=== PATIENT | male | born 1985 | race Caucasian/White ===

== ENCOUNTER 2017-04-13 12:41 | Inpatient (IN) | payer OTHER, BC ==
[2017-04-13] MEDS ORDERED: Aspirin 81 MG Tab.Chew PO ONE (13:00)
[2017-04-13] MEDS ORDERED: Magnesium Sulfate/Water 2 GM in Premix Bag 1 BAG IV ONE (13:02)
[2017-04-13] MEDS ORDERED: Diltiazem 25 MG/5 ML SDV IVPUSH ONE ×3 (13:02→13:39)
[2017-04-13] MEDS ORDERED: Sodium Chloride 0.9% 1,000 ML IV ONE (13:05)
[2017-04-13] MEDS ORDERED: Sodium Chloride 0.9% 1,000 ML IV SCH (13:15)
--- NOTE | 2017-04-13 13:31 | EDM.PDOC ---
ED HPI GENERAL MEDICAL PROBLEM - General Chief Complaint: Cardiovascular Problem Stated Complaint: RAPID HEART RATE AND HIGH BLOOD PRESSURE Time Seen by Provider: 04/13/17 12:55 Source of Information: Reports: Patient History Limitations: Reports: No Limitations - History of Present Illness INITIAL COMMENTS - FREE TEXT/NARRATIVE: Patient is a 32-year-old male who presents to the ED complaining of fast heart rate, palpitations, shortness of breath with exertion, and diaphoresis. Patient states he awoke this morning at approximately 7:00 this morning with palpitations and fluttering sensation to his chest. Patient took his blood pressure and found out his heart rate was in the 140s. Patient took all his home medications as listed below. Throughout the course of the morning he noted his heart rate increasing. He has only shortness of breath with exertion. no chest pain, no dizziness, no nausea or vomiting, no presyncopal/syncopal episode no history of similar symptoms in the past. He has a history of hypertension that was diagnosed one year ago and has since then been taking lisinopril and hydrochlorothiazide. In addition he has a has history of hyperlipidemia and takes simvastatin and facial. There is a history of first- degree relatives with heart disease dad. There is no history DVT/PE. Patient smokes approx. 2 cigarettes with alcohol consumption. Patient did drink approximately 10-12 beers yesterday while watching a football game. Caffeine Intake 2-3 sodas per day. Denies any recreational drug use. - Related Data Allergies Allergy/AdvReac Type Severity Reaction Status Date / Time No Known Allergies Allergy Verified 03/18/16 15:23 CDT Home Meds: Home Meds Fish Oil/[place]-3 Fatty Acids [Fish Oil] 1 each PO DAILY 04/13/17 [History] Hydrochlorothiazide 12.5 mg PO DAILY 04/13/17 [History] Lisinopril 10 mg PO DAILY 04/13/17 [History] Simvastatin [Zocor] 40 mg PO BEDTIME 04/13/17 [History] Past Medical History HEENT History: Reports: None Cardiovascular History: Reports: Afib, Hypertension Respiratory History: Reports: Other (See Below) Other Respiratory History: pleurisy, pneumonia and mono together as a child Gastrointestinal History: Reports: None Genitourinary History: Reports: None Musculoskeletal History: Reports: None Neurological History: Reports: None Psychiatric History: Reports: None Endocrine/Metabolic History: Reports: None Hematologic History: Reports: None Immunologic History: Reports: None Oncologic (Cancer) History: Reports: None Dermatologic History: Reports: None - Infectious Disease History Infectious Disease History: Reports: None - Past Surgical History Head Surgeries/Procedures: Reports: None Male Surgical History: Reports: None Social & Family History - Family History Cardiac: Reports: Bypass, Hypertension - Tobacco Use Smoking Status *Q: Never Smoker Years of Tobacco use: 10 Packs/Tins Daily: 0.1 Second Hand Smoke Exposure: No - Alcohol Use Days Per Week of Alcohol Use: 3 Number of Drinks Per Day: 4 Total Drinks Per Week: 12 - Recreational Drug Use Recreational Drug Use: No ED ROS GENERAL - Review of Systems Review Of Systems: See Below Constitutional: Denies: Fever, Chills, Decreased Appetite HEENT: Reports: No Symptoms Respiratory: Reports: Shortness of Breath. Denies: Cough, Sputum Cardiovascular: Reports: Dyspnea on Exertion, Palpitations. Denies: Chest Pain , Edema, Lightheadedness, Syncope GI/Abdominal: Denies: Abdominal Pain, Nausea, Vomiting : Reports: No Symptoms Musculoskeletal: Denies: Neck Pain, Shoulder Pain, Arm Pain, Back Pain Skin: Reports: No Symptoms Neurological: Denies: Dizziness, Headache, Numbness, Tingling, Difficulty Walking ED EXAM, GENERAL - Physical Exam Exam: See Below Exam Limited By: No Limitations General Appearance: Alert, WD/WN, No Apparent Distress Eye Exam: Bilateral Eye: PERRL Ears: Hearing Grossly Normal Nose: Normal Inspection Throat/Mouth: Normal Voice, No Airway Compromise Neck: Normal Inspection, Supple Respiratory/Chest: No Respiratory Distress, Lungs Clear, Normal Breath Sounds, No Accessory Muscle Use, Chest Non-Tender Cardiovascular: Normal Peripheral Pulses, Tachycardia, Systolic Murmur, Irregularly Irregular Peripheral Pulses: 2+: Radial (L), Radial (R) GI/Abdominal: Normal Bowel Sounds, Soft, Non-Tender, No Organomegaly, No Distention Extremities: Normal Inspection, Normal Range of Motion, Non-Tender, No Pedal Edema, Normal Capillary Refill Neurological: Alert, Oriented, CN II-XII Intact, Normal Cognition, No Motor/ Sensory Deficits Psychiatric: Normal Affect, Normal Mood Skin Exam: Warm, Dry, Intact, Normal Color Course - Vital Signs Last Recorded V/S: Last Vital Signs Temp 98.6 F 04/13/17 20:00 Pulse 104 H 04/13/17 21:00 Resp 26 H 04/13/17 20:00 BP 138/91 H 04/13/17 22:00 Pulse Ox 96 04/13/17 20:00 - Orders/Labs/Meds Orders: Active Orders 24 hr Category Date Time Status Chest 1V Frontal [CR] Stat Exams 04/13/17 12:59 Taken Diltiazem 125 mg Med 04/13/17 13:45 Active Sodium Chloride 0.9% [Normal Saline] 100 ml IV TITRATE EKG 12 Lead [EK] Stat Ther 04/13/17 12:56 Ordered Medication Orders Acetaminophen (Tylenol) 650 mg PO Q4H PRN PRN Reason: Pain (Mild 1-3)/fever Hydrocodone Bitart/Acetaminophen ([place] 325-5 Mg) 1 tab PO Q4H PRN PRN Reason: Pain (moderate 4-6) Albuterol/Ipratropium (Duoneb 3.0-0.5 Mg/3 Ml) 3 ml NEB Q4H PRN PRN Reason: Shortness Of Breath/wheezing Apixaban (Eliquis) 5 mg PO BID [facility] Last Admin: 04/13/17 21:18 Dose: 5 mg Admin: 04/13/17 21:13 Dose: Not Given Bisacodyl (Dulcolax) 5 mg PO DAILY PRN PRN Reason: Constipation Digoxin (Lanoxin) 250 mcg IVPUSH Q6H [facility] Stop: 04/14/17 07:01 Last Admin: 04/13/17 19:55 Dose: 250 mcg Docusate Sodium (Colace) 100 mg PO BID PRN PRN Reason: Constipation Hydralazine HCl (Apresoline) 20 mg IVPUSH Q4H PRN PRN Reason: Hypertension Hydrochlorothiazide (Hydrochlorothiazide) 12.5 mg PO DAILY [facility] Hydromorphone HCl (Dilaudid) 0.25 mg IVPUSH Q2H PRN PRN Reason: Pain (severe 7-10) Diltiazem HCl 125 mg/ Sodium (Chloride) 125 mls @ 5 mls/hr IV TITRATE [facility]; 5 MG /HR PRN Reason: Protocol Last Titration: 04/13/17 19:00 Dose: 15 mg/hr, 15 mls/hr Titration: 04/13/17 14:55 Dose: 10 mg/hr, 10 mls/hr Admin: 04/13/17 14:23 Dose: 5 mg/hr, 5 mls/hr Promethazine HCl 12.5 mg/ (Sodium Chloride) 50.5 mls @ 100 mls/hr IV Q6H PRN PRN Reason: Nausea/Vomiting Lisinopril (Prinivil) 10 mg PO DAILY [facility] Lorazepam (Ativan) 1 mg IV Q6H PRN PRN Reason: Anxiety Last Admin: 04/13/17 21:21 Dose: 1 mg Lorazepam (Ativan) 2 mg IVPUSH Q4H PRN PRN Reason: Seizures Magnesium Sulfate (Pharmacy To Dose - Magnesium Replacement) 1 dose .XX ASDIRECTED [facility] Metoprolol Tartrate (Lopressor) 5 mg IVPUSH Q4H PRN PRN Reason: Tachycardia Last Admin: 04/13/17 16:56 Dose: 5 mg Ondansetron HCl (Zofran) 4 mg IV Q6H PRN PRN Reason: Nausea/Vomiting Polyethylene Glycol (Miralax) 17 gm PO DAILY PRN PRN Reason: Constipation Potassium Chloride (Pharmacy To Dose - Potassium Replacement) 1 dose .XX ASDIRECTED [facility] Senna/Docusate Sodium (Senna Plus) 1 tab PO BID PRN PRN Reason: Constipation Simvastatin (Zocor) 40 mg PO BEDTIME [facility] Temazepam (Restoril) 15 mg PO BEDTIME PRN PRN Reason: Sleep Last Admin: 04/13/17 21:20 Dose: 15 mg Labs: Laboratory Tests 04/13/17 04/13/17 04/13/17 Range/Units 12:55 12:55 12:55 WBC 9.30 H (4.23-9.07) K/mm3 RBC 5.61 (4.63-6.08) M/mm3 Hgb 17.4 (13.7-17.5) gm/L Hct 50.3 (40.1-51.0) % MCV 89.7 (79.0-92.2) fl MCH 31.0 (25.7-32.2) pg MCHC 34.6 (32.2-35.5) g/dl RDW Std Deviation 41.6 (35.1-43.9) fL Plt Count 264 (163-337) K/mm3 MPV 10.9 (9.4-12.3) fl Neut % (Auto) 59.9 (34.0-67.9) % Lymph % (Auto) 30.3 (21.8-53.1) % [place] % (Auto) 6.8 (5.3-12.2) % Eos % (Auto) 1.8 (0.8-7.0) Baso % (Auto) 0.8 (0.1-1.2) % Neut # (Auto) 5.57 H (1.78-5.38) K/mm3 Lymph # (Auto) 2.82 (1.32-3.57) K/mm3 [place] # (Auto) 0.63 (0.30-0.82) K/mm3 Eos # (Auto) 0.17 (0.04-0.54) K/mm3 Baso # (Auto) 0.07 (0.01-0.08) K/mm3 Sodium 143 (136-145) mEq/L Potassium 4.1 (3.5-5.1) mEq/L Chloride 104 (98-107) mEq/L Carbon Dioxide 27 (21-32) mEq/L Anion Gap 16.1 H (5-15) BUN 15 (7-18) mg/dL Creatinine 1.2 (0.7-1.3) mg/dL Est Cr Clr Drug Dosing 98.03 mL/min Estimated GFR (MDRD) > 60 (>60) mL/min BUN/Creatinine Ratio 12.5 L (14-18) Glucose 121 H (74-106) mg/dL Calcium 9.0 (8.5-10.1) mg/dL Magnesium 1.7 L (1.8-2.4) mg/dl Total Bilirubin 0.4 (0.2-1.0) mg/dL AST 57 H (15-37) U/L ALT 67 H (16-63) U/L Alkaline Phosphatase 66 (46-116) U/L Troponin I < 0.017 (0.00-0.056) ng/mL Total Protein 7.6 (6.4-8.2) g/dl Albumin 3.7 (3.4-5.0) g/dl Globulin 3.9 gm/dL Albumin/Globulin Ratio 1.0 (1-2) TSH 3rd Generation 1.465 (0.358-3.74) uIU/mL Meds: Medications Generic Name Dose Route Start Last Admin Trade Name Freq PRN Reason Stop Dose Admin Acetaminophen 650 mg 04/13/17 16:17 Tylenol PO Q4H PRN Pain (Mild 1-3)/fever Hydrocodone Bitart/Acetaminophen 1 tab 04/13/17 16:17 [place] 325-5 Mg PO Q4H PRN Pain (moderate 4-6) Albuterol/Ipratropium 3 ml 04/13/17 16:17 Duoneb 3.0-0.5 Mg/3 Ml NEB Q4H PRN Shortness Of Breath/wheezing Apixaban 5 mg 04/13/17 20:53 04/13/17 21:18 Eliquis PO 5 mg BID [facility]STER Administration Bisacodyl 5 mg 04/13/17 16:17 Dulcolax PO DAILY PRN Constipation Digoxin 250 mcg 04/13/17 19:00 04/13/17 19:55 Lanoxin IVPUSH 04/14/17 07:01 250 mcg Q6H [facility] Administration Docusate Sodium 100 mg 04/13/17 16:17 Colace PO BID PRN Constipation Hydralazine HCl 20 mg 04/13/17 16:29 Apresoline IVPUSH Q4H PRN Hypertension Hydrochlorothiazide 12.5 mg 04/14/17 09:00 Hydrochlorothiazide PO DAILY [facility] Hydromorphone HCl 0.25 mg 04/13/17 16:17 Dilaudid IVPUSH Q2H PRN Pain (severe 7-10) Diltiazem HCl 125 mg/ Sodium 125 mls @ 5 mls/hr 04/13/17 13:45 04/13/17 19:00 Chloride IV 15 mg/hr TITRATE [facility] 15 mls/hr Protocol Titration 5 MG/HR Promethazine HCl 12.5 mg/ 50.5 mls @ 100 mls/hr 04/13/17 16:17 Sodium Chloride IV Q6H PRN Nausea/Vomiting Lisinopril 10 mg 04/14/17 09:00 Prinivil PO DAILY [facility] Lorazepam 1 mg 04/13/17 16:17 04/13/17 21:21 Ativan IV 1 mg Q6H PRN Administration Anxiety Lorazepam 2 mg 04/13/17 16:29 Ativan IVPUSH Q4H PRN Seizures Magnesium Sulfate 1 dose 04/13/17 16:30 Pharmacy To Dose - Magnesium Replacement .XX ASDIRECTED [facility] Metoprolol Tartrate 5 mg 04/13/17 16:29 04/13/17 16:56 Lopressor IVPUSH 5 mg Q4H PRN Administration Tachycardia Ondansetron HCl 4 mg 04/13/17 16:17 Zofran IV Q6H PRN Nausea/Vomiting Polyethylene Glycol 17 gm 04/13/17 16:17 Miralax PO DAILY PRN Constipation Potassium Chloride 1 dose 04/13/17 16:30 Pharmacy To Dose - Potassium Replacement .XX ASDIRECTED [facility] Senna/Docusate Sodium 1 tab 04/13/17 16:17 Senna Plus PO BID PRN Constipation Simvastatin 40 mg 04/13/17 21:00 Zocor PO BEDTIME [facility] Temazepam 15 mg 04/13/17 16:17 04/13/17 21:20 Restoril PO 15 mg BEDTIME PRN Administration Sleep Discontinued Medications Generic Name Dose Route Start Last Admin Trade Name Freq PRN Reason Stop Dose Admin Aspirin 324 mg 04/13/17 13:00 04/13/17 13:14 Aspirin PO 04/13/17 13:01 324 mg ONETIME ONE Administration Diltiazem HCl 10 mg 04/13/17 13:02 04/13/17 17:29 Diltiazem IVPUSH 04/13/17 13:03 Not Given ONETIME ONE Diltiazem HCl 20 mg 04/13/17 13:03 04/13/17 13:11 Diltiazem IVPUSH 04/13/17 13:04 20 mg ONETIME ONE Administration Diltiazem HCl 20 mg 04/13/17 13:39 04/13/17 13:50 Diltiazem IVPUSH 04/13/17 13:40 20 mg ONETIME ONE Administration Magnesium Sulfate 2 gm/ Premix 50 mls @ 25 mls/hr 04/13/17 13:02 04/13/17 13: 15 IV 04/13/17 15:01 25 mls/hr ONETIME ONE Administration Sodium Chloride 1,000 mls @ 250 mls/hr 04/13/17 13:15 04/13/17 14:23 Normal Saline IV 250 mls/hr ASDIRECTED [facility] Administration Sodium Chloride 1,000 mls @ 999 mls/hr 04/13/17 13:05 04/13/17 13:10 Normal Saline IV 04/13/17 14:05 999 mls/hr ONETIME ONE Administration - Re-Assessments/Exams Free Text/Narrative Re-Assessment/Exam: Patient is a 32-year-old male presents ED with sudden onset of atrial fibrillation with RVR. He has some mild shortness of breath with exertion. He has no chest pain, presyncope/syncopal episodes, nausea vomiting, or other concerning symptoms. Blood pressure is stable. Onset was approximately 6:00 this morning. EKG revealed atrial fibrillation at a rate of [address] elevation present. Patient has no chest pain. Peripheral IV established with normal saline 999 mls per hour bolus and then 250 mls/hr thereafter, MG 2 grams IVP, ASA 324mg PO, and Diltiazem 20mg IVP. Initial labs and studies include: CBC, chem 14, troponin, and chest x-ray one view. 1342 Heart rate remains in the 120s to 140s atrial fibrillation. Blood pressure stable. Will go ahead with another 20 mg IVP of diltiazem and start the Cardizem drip. TSH and magnesium level VII ordered. Labs reviewed:CBC was essentially normal. Sodium 143, potassium 4.1, AG 16.1, creatinine 1.2, glucose 121, AST 57, ALT 67, troponin less than 0.017. Patient is on simvastatin and thus likely result of elevated LFTs. He does not drink alcohol on everyday basis. 04/13/17 14:25 Cardizem gtt just started. Patient remains in A-Fib 120's. Blood pressure stable. Patient has no symptoms. If it does not convert in the next 1 hr will admit. Urine drug tox ordered along with UA. 04/13/17 15:[address] Franz. He has accepted the patient. Patient will require ICU admission. MCG has been completed. Admission orders will be placed when patient is moved to the floor. Departure - Departure Time of Disposition: 15:59 Disposition: Admitted As Inpatient 64 Condition: Fair Clinical Impression: Atrial fibrillation, new onset, Atrial fibrillation with RVR, Hypomagnesemia - My Orders Last 24 Hours: My Active Orders 04/13/17 12:56 EKG 12 Lead [EK] Stat 04/13/17 12:59 Chest 1V Frontal [CR] Stat 04/13/17 13:45 Diltiazem 125 mg Sodium Chloride 0.9% [Normal Saline] 100 ml IV TITRATE - Assessment/Plan Last 24 Hours: My Active Orders 04/13/17 12:56 EKG 12 Lead [EK] Stat 04/13/17 12:59 Chest 1V Frontal [CR] Stat 04/13/17 13:45 Diltiazem 125 mg Sodium Chloride 0.9% [Normal Saline] 100 ml IV TITRATE
[2017-04-13] MEDS: Diltiazem 125 MG in Sodium Chloride 0.9% 100 ML IV SCH ×2 (14:23→23:00)
[2017-04-13] MEDS ORDERED: Docusate Sodium 100 MG Cap PO PRN (16:17)
[2017-04-13] MEDS ORDERED: Temazepam 15 MG Cap PO PRN (16:17)
[2017-04-13] MEDS ORDERED: Acetaminophen 325 MG Tab PO PRN (16:17)
[2017-04-13] MEDS ORDERED: Bisacodyl 5 MG Tab PO PRN (16:17)
[2017-04-13] MEDS ORDERED: Ondansetron 4 MG/2 ML SDV IV PRN (16:17)
[2017-04-13] MEDS ORDERED: Albuterol/Ipratropium 3.0-0.5 MG/3 ML Neb Soln NEB PRN (16:17)
[2017-04-13] MEDS ORDERED: Promethazine 12.5 MG in Sodium Chloride 0.9% 50 ML IV PRN (16:17)
[2017-04-13] MEDS ORDERED: HYDROmorphone 1 MG/ML Syringe IVPUSH PRN (16:17)
[2017-04-13] MEDS ORDERED: Acetaminophen/HYDROcodone 325-5 MG Tab PO PRN (16:17)
[2017-04-13] MEDS ORDERED: Polyethylene Glycol 3350 Powder 17 GM Packet PO PRN (16:17)
--- NOTE | 2017-04-13 16:17 | PCM.HP ---
H&P History of Present Illness - General Date of Service: 04/13/17 Admit Problem/Dx: Admission Diagnosis/Problem Admission Diagnosis/Problem Atrial fibrillation Source of Information: Patient, Old Records, Provider, RN Notes Reviewed History Limitations: Reports: No Limitations - History of Present Illness Initial Comments - Free Text/Narative: This is a 32-year-old young white male with past medical history of hypertension , hyperlipidemia, and obesity with a BMI of +30 who presents to the emergency department with complaints of heart palpitations associated with shortness of breath and diaphoresis. His symptoms started this morning at about 7:00 that woke him up in bed. He took his blood pressure and found that his heart rate was in the 140s. He took his home medications as usual. However he noted that throughout the course of the morning, his heart rate seems to be increasing in rate. Patient denies any previous history of it in the past. Nothing makes his symptoms better or worse. He denies any thyroid issues. No history of irregular heart rate. He denies illicit drug use. However he admits to occasional alcohol use approximately 10-12 beers mostly on the weekends. He also consumes heavy amount of sodas per day according to his . His initial workup in the emergency department shows a fairly unremarkable CBC with a WBC of 9.30. His chemistry is remarkable for anion gap of 16.1, glucose of 121, magnesium of 1.7, AST of 57, ALT of 67. TSh and troponin are both negative. UA/UDS are both negative. His EKG shows irregular heart rate. His chest x-ray shows no acute abnormal findings. Patient received initial treatment in the emergency department before he was sent to the unit for further management. He was admitted for new onset of atrial fibrillation with RVR. - Related Data Allergies/Adverse Reactions: Allergies Allergy/AdvReac Type Severity Reaction Status Date / Time No Known Allergies Allergy Verified 03/18/16 15:23 CDT Home Medications: Home Meds Fish Oil/[place]-3 Fatty Acids [Fish Oil] 1 each PO DAILY 04/13/17 [History] Hydrochlorothiazide 12.5 mg PO DAILY 04/13/17 [History] Lisinopril 10 mg PO DAILY 04/13/17 [History] Simvastatin [Zocor] 40 mg PO BEDTIME 04/13/17 [History] Past Medical History HEENT History: Reports: None Cardiovascular History: Reports: Afib, Hypertension Respiratory History: Reports: Other (See Below) Other Respiratory History: pleurisy, pneumonia and mono together as a child Gastrointestinal History: Reports: None Genitourinary History: Reports: None Musculoskeletal History: Reports: None Neurological History: Reports: None Psychiatric History: Reports: None Endocrine/Metabolic History: Reports: None Hematologic History: Reports: None Immunologic History: Reports: None Oncologic (Cancer) History: Reports: None Dermatologic History: Reports: None - Infectious Disease History Infectious Disease History: Reports: None - Past Surgical History Head Surgeries/Procedures: Reports: None Male Surgical History: Reports: None Social & Family History - Family History Cardiac: Reports: Bypass, Hypertension - Tobacco Use Smoking Status *Q: Never Smoker Years of Tobacco use: 10 Packs/Tins Daily: 0.1 Second Hand Smoke Exposure: No - Alcohol Use Days Per Week of Alcohol Use: 3 Number of Drinks Per Day: 4 Total Drinks Per Week: 12 - Recreational Drug Use Recreational Drug Use: No H&P Review of Systems - Review of Systems: Review Of Systems: See Below General: Denies: Fever, Chills, Malaise, Weakness, Fatigue HEENT: Reports: No Symptoms Pulmonary: Reports: Shortness of Breath. Denies: Wheezing, Pleuritic Chest Pain , Cough Cardiovascular: Reports: Palpitations, Dyspnea on Exertion. Denies: Chest Pain , Edema, Lightheadedness, Syncope, Claudication Gastrointestinal: Denies: Abdominal Pain, Nausea, Vomiting Genitourinary: Reports: No Symptoms Musculoskeletal: Reports: No Symptoms Skin: Denies: Cyanosis, Pallor, Diaphoresis Psychiatric: Denies: Agitation, Hallucinations, Suicidal Ideation Neurological: Denies: Confusion, Dizziness, Seizure, Syncope, Difficulty Walking , Weakness, Gait Disturbance Hematologic/Lymphatic: Reports: No Symptoms Immunologic: Reports: No Symptoms Exam - Exam Exam: See Below - Vital Signs Vital Signs: Last Vital Signs Temp 35.3 C 04/13/17 12:46 Pulse 179 H 04/13/17 12:46 Resp 27 H 04/13/17 12:46 BP 133/116 H 04/13/17 12:46 Pulse Ox 95 04/13/17 12:46 Weight: 153.768 kg - Exam General: Alert, Oriented, Cooperative, Other (Morbidly Obese). No: Mild Distress HEENT: Conjunctiva Clear, EACs Clear, EOMI, Hearing Intact, Mucosa Moist & [place] , Nares Patent, Normal Nasal Septum, Posterior Pharynx Clear, Pupils Equal, Pupils Reactive, TMs Clear Neck: Supple, Trachea Midline, +2 Carotid Pulse wo Bruit, Full Range of Motion, Other (short and thick). No: JVD Lungs: Clear to Auscultation, Normal Respiratory Effort Cardiovascular: Irregular Rhythm, Other (Irregular rate) GI/Abdominal Exam: Normal Bowel Sounds, Soft, Non-Tender, No Organomegaly, No Distention, No Abnormal Bruit, Other (Obese) (Male) Exam: Deferred Rectal (Males) Exam: Deferred Back Exam: Normal Inspection, Decreased Range of Motion Extremities: Normal Inspection, Normal Range of Motion, Non-Tender, No Pedal Edema, Normal Capillary Refill Peripheral Pulses: 3+: Posterior Tibial (L), Posterior Tibial (R), Dorsalis Pedis (L), Dorsalis Pedis (R) Skin: Warm, Dry, Intact Neuro Extensive - Mental Status: Oriented x3, Normal Cognition, Memory Intact Neuro Extensive - Motor, Sensory, Reflexes: CN II-XII Intact, Normal Gait Psychiatric: Alert, Normal Affect, Anxious. No: Agitated, Suicidal Ideation, Hallucinations - Patient Data Result Diagrams: 04/14/17 06:17 04/14/17 06:17 EKG INTERPRETATION EKG Date: 04/13/17 Time: 18:09 Rhythm: A-Fib Rate (Beats/Min): 99 *Q Meaningful Use (ADM) - VTE *Q VTE Criteria *Q: - Stroke *Q Stroke Criteria *Q: - AMI *Q AMI Criteria *Q: Problem List Initiated/Reviewed/Updated: Yes Orders Last 24hrs: Active Orders 24 hr Category Date Time Status Admission Status [Patient Status] [ADT] Routine ADT 04/13/17 15:59 Active Medication Orders Sodium Chloride (Normal Saline) 1,000 mls @ 250 mls/hr IV ASDIRECTED [facility] Last Admin: 04/13/17 14:23 Dose: 250 mls/hr Diltiazem HCl 125 mg/ Sodium (Chloride) 125 mls @ 5 mls/hr IV TITRATE [facility]; 5 MG /HR PRN Reason: Protocol Last Titration: 04/13/17 14:55 Dose: 10 mg/hr, 10 mls/hr Admin: 04/13/17 14:23 Dose: 5 mg/hr, 5 mls/hr Assessment/Plan Comment:: Assessment/Plan: Acute: New Onset of Atrial Fibrillation with RVR - Risk factors: Chronic Alcohol Use and Heavy Caffeine Intake +/- SANDIP - HR in the 170s - Had similar episode in the past few days if not weeks - Would not benefit with cardioversion due to unknown duration of irregular heart rate - TFT and UDS both negative - Currently on Cardizem drip - [id number] Score is 1 (0.9% Yearly Risk of Stroke) w/o Anticoagulation - Will offer Warfarin vs DOACs; he selected DOACs - No recent GI, Neurologic, Spinal or Any kind of Major Bleed - HAS BLED Score: 2 points (moderate risk for major bleeding) Hyperglycemia - BS 121 - Screen for Diabetes Hypomagnesemia - Mg 1.7 - Receive supplement in ED - Will continue to monitor Chronic: HTN HLD Probable SANDIP-pending Sleep Study Alcohol Use 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
[2017-04-13] MEDS ORDERED: LORazepam 2 MG/ML MDV IVPUSH PRN (16:29)
[2017-04-13] MEDS ORDERED: Metoprolol Tartrate 5 MG/5 ML SDV IVPUSH PRN (16:29)
[2017-04-13] MEDS ORDERED: hydrALAZINE 20 MG/ML SDV IVPUSH PRN (16:29)
[2017-04-13] MEDS ORDERED: FLU Vacc QS 2017-18 (6mos UP)/PF 60 MCG/0.5 ML Syringe IM ONE (19:15)
[2017-04-13] MEDS: Digoxin 500 MCG/2 ML Amp IVPUSH SCH (19:55)
[2017-04-13] MEDS: Apixaban 5 MG Tab PO SCH ×2 (21:13→21:18)
[2017-04-13] MEDS: LORazepam 2 MG/ML MDV IV PRN (21:21)
[2017-04-14] MEDS: Digoxin 500 MCG/2 ML Amp IVPUSH SCH ×2 (00:32→06:25)
[2017-04-14] MEDS: LORazepam 2 MG/ML MDV IV PRN ×2 (07:44→20:20)
[2017-04-14] MEDS ORDERED: Esmolol/Normal Saline 2.5 GM/250 ML BAG IV SCH (09:00)
[2017-04-14] MEDS ORDERED: HYDROmorphone 0.5 MG/0.5 ML Syringe IVPUSH PRN (09:10)
--- NOTE | 2017-04-14 09:21 | PCM.PN ---
<Ariana Rayo - Last Filed: 04/14/17 09:37> - General Info Date of Service: 04/14/17 Functional Status: Reports: Pain Controlled - Review of Systems General: Reports: No Symptoms HEENT: Reports: No Symptoms Pulmonary: Reports: No Symptoms. Denies: Shortness of Breath (some SOB earlier in the morning but not currently) Cardiovascular: Reports: Palpitations. Denies: Chest Pain, Edema Gastrointestinal: Reports: No Symptoms Genitourinary: Reports: No Symptoms Musculoskeletal: Reports: No Symptoms Skin: Reports: No Symptoms Neurological: Reports: No Symptoms. Denies: Dizziness, Headache Psychiatric: Reports: No Symptoms Systems Review Comment:: He says he did not sleep very much last night. He says he had some shortness of breath for a couple hours earlier this morning, but that he doesn't think he is short of breath currently. He is not having chest pain, lightheadedness, or dizziness currently. The nurse notes that he has episodes of increased tachycardia when he moves in bed. - Patient Data Vitals - Most Recent: Last Vital Signs Temp 98.2 F 04/14/17 05:00 Pulse 100 04/14/17 07:00 Resp 14 04/14/17 05:00 BP 139/93 H 04/14/17 07:00 Pulse Ox 95 04/14/17 05:00 Weight - Most Recent: 154.403 kg I&O - Last 24 Hours: Intake & Output 04/13/17 04/14/17 04/14/17 22:59 06:59 14:59 Intake Total 920 350 Balance 920 350 Lab Results Last 24 Hours: Laboratory Results - last 24 hr 04/13/17 04/13/17 04/14/17 Range/Units 16:00 16:00 06:17 WBC 9.01 (4.23-9.07) K/mm3 RBC 5.35 (4.63-6.08) M/mm3 Hgb 16.7 (13.7-17.5) gm/L Hct 48.8 (40.1-51.0) % MCV 91.2 (79.0-92.2) fl MCH 31.2 (25.7-32.2) pg MCHC 34.2 (32.2-35.5) g/dl RDW Std Deviation 42.6 (35.1-43.9) fL Plt Count 203 (163-337) K/mm3 MPV 11.1 (9.4-12.3) fl Neut % (Auto) 60.6 (34.0-67.9) % Lymph % (Auto) 26.7 (21.8-53.1) % [place] % (Auto) 8.4 (5.3-12.2) % Eos % (Auto) 3.0 (0.8-7.0) Baso % (Auto) 1.0 (0.1-1.2) % Neut # (Auto) 5.45 H (1.78-5.38) K/mm3 Lymph # (Auto) 2.41 (1.32-3.57) K/mm3 [place] # (Auto) 0.76 (0.30-0.82) K/mm3 Eos # (Auto) 0.27 (0.04-0.54) K/mm3 Baso # (Auto) 0.09 H (0.01-0.08) K/mm3 Sodium (136-145) mEq/L Potassium (3.5-5.1) mEq/L Chloride (98-107) mEq/L Carbon Dioxide (21-32) mEq/L Anion Gap (5-15) BUN (7-18) mg/dL Creatinine (0.7-1.3) mg/dL Est Cr Clr Drug Dosing mL/min Estimated GFR (MDRD) (>60) mL/min BUN/Creatinine Ratio (14-18) Glucose (74-106) mg/dL Hemoglobin A1c (4.50-6.20) % Calcium (8.5-10.1) mg/dL Magnesium (1.8-2.4) mg/dl Triglycerides (<150) mg/dL Cholesterol (<200) mg/dL LDL Cholesterol Direct (<100) mg/dL HDL Cholesterol (40-59) mg/dL Urine Color Yellow (Yellow) Urine Appearance Clear (Clear) Urine pH 6.0 (5.0-8.0) Ur Specific [place] > or = 1.030 (1.005-1.030) Urine Protein 2+ H (Negative) Urine Glucose (UA) Negative (Negative) Urine Ketones Negative (Negative) Urine Occult Blood Trace-lysed H (Negative) Urine Nitrite Negative (Negative) Urine Bilirubin Negative (Negative) Urine Urobilinogen 0.2 (0.2-1.0) Ur Leukocyte Esterase Negative (Negative) Urine RBC 0-5 (0-5) /hpf Urine WBC 0-5 (0-5) /hpf Ur Epithelial Cells 0-5 (0-5) /hpf Urine Bacteria Few (FEW) /hpf Urine Mucus Moderate H (FEW) /hpf Digoxin (0.9-2.0) ng/mL Urine Opiates Screen Negative (NEGATIVE) Ur Buprenorphine Scrn Negative (NEGATIVE) Ur Oxycodone Screen Negative (NEGATIVE) Urine Methadone Screen Negative (NEGATIVE) Ur Propoxyphene Screen Negative (NEGATIVE) Ur Barbiturates Screen Negative (NEGATIVE) Ur Tricyclics Screen Negative (NEGATIVE) Ur Phencyclidine Scrn Negative (NEGATIVE) Ur Amphetamine Screen Negative (NEGATIVE) U Methamphetamines Scrn Negative (NEGATIVE) U Benzodiazepines Scrn Negative (NEGATIVE) U Cocaine Metab Screen Negative (NEGATIVE) U Marijuana (THC) Screen Negative (NEGATIVE) 04/14/17 04/14/17 04/14/17 Range/Units 06:17 06:17 06:17 WBC (4.23-9.07) K/mm3 RBC (4.63-6.08) M/mm3 Hgb (13.7-17.5) gm/L Hct (40.1-51.0) % MCV (79.0-92.2) fl MCH (25.7-32.2) pg MCHC (32.2-35.5) g/dl RDW Std Deviation (35.1-43.9) fL Plt Count (163-337) K/mm3 MPV (9.4-12.3) fl Neut % (Auto) (34.0-67.9) % Lymph % (Auto) (21.8-53.1) % [place] % (Auto) (5.3-12.2) % Eos % (Auto) (0.8-7.0) Baso % (Auto) (0.1-1.2) % Neut # (Auto) (1.78-5.38) K/mm3 Lymph # (Auto) (1.32-3.57) K/mm3 [place] # (Auto) (0.30-0.82) K/mm3 Eos # (Auto) (0.04-0.54) K/mm3 Baso # (Auto) (0.01-0.08) K/mm3 Sodium 138 (136-145) mEq/L Potassium 4.2 (3.5-5.1) mEq/L Chloride 101 (98-107) mEq/L Carbon Dioxide 27 (21-32) mEq/L Anion Gap 14.2 (5-15) BUN 17 (7-18) mg/dL Creatinine 1.2 (0.7-1.3) mg/dL Est Cr Clr Drug Dosing 98.03 mL/min Estimated GFR (MDRD) > 60 (>60) mL/min BUN/Creatinine Ratio 14.2 (14-18) Glucose 113 H (74-106) mg/dL Hemoglobin A1c 6.00 (4.50-6.20) % Calcium 8.9 (8.5-10.1) mg/dL Magnesium 1.9 (1.8-2.4) mg/dl Triglycerides 398 H (<150) mg/dL Cholesterol 189 (<200) mg/dL LDL Cholesterol Direct 100 (<100) mg/dL HDL Cholesterol 40.0 (40-59) mg/dL Urine Color (Yellow) Urine Appearance (Clear) Urine pH (5.0-8.0) Ur Specific [place] (1.005-1.030) Urine Protein (Negative) Urine Glucose (UA) (Negative) Urine Ketones (Negative) Urine Occult Blood (Negative) Urine Nitrite (Negative) Urine Bilirubin (Negative) Urine Urobilinogen (0.2-1.0) Ur Leukocyte Esterase (Negative) Urine RBC (0-5) /hpf Urine WBC (0-5) /hpf Ur Epithelial Cells (0-5) /hpf Urine Bacteria (FEW) /hpf Urine Mucus (FEW) /hpf Digoxin 0.5 L (0.9-2.0) ng/mL Urine Opiates Screen (NEGATIVE) Ur Buprenorphine Scrn (NEGATIVE) Ur Oxycodone Screen (NEGATIVE) Urine Methadone Screen (NEGATIVE) Ur Propoxyphene Screen (NEGATIVE) Ur Barbiturates Screen (NEGATIVE) Ur Tricyclics Screen (NEGATIVE) Ur Phencyclidine Scrn (NEGATIVE) Ur Amphetamine Screen (NEGATIVE) U Methamphetamines Scrn (NEGATIVE) U Benzodiazepines Scrn (NEGATIVE) U Cocaine Metab Screen (NEGATIVE) U Marijuana (THC) Screen (NEGATIVE) Med Orders - Current: Current Medications Acetaminophen (Tylenol) 650 mg PO Q4H PRN PRN Reason: Pain (Mild 1-3)/fever Hydrocodone Bitart/Acetaminophen ([place] 325-5 Mg) 1 tab PO Q4H PRN PRN Reason: Pain (moderate 4-6) Albuterol/Ipratropium (Duoneb 3.0-0.5 Mg/3 Ml) 3 ml NEB Q4H PRN PRN Reason: Shortness Of Breath/wheezing Apixaban (Eliquis) 5 mg PO BID MONSTER Last Admin: 04/13/17 21:18 Dose: 5 mg Bisacodyl (Dulcolax) 5 mg PO DAILY PRN PRN Reason: Constipation Digoxin (Lanoxin) 250 mcg PO ONETIME ONE Stop: 04/14/17 12:01 Docusate Sodium (Colace) 100 mg PO BID PRN PRN Reason: Constipation Hydralazine HCl (Apresoline) 20 mg IVPUSH Q4H PRN PRN Reason: Hypertension Last Admin: 04/14/17 06:26 Dose: 20 mg Hydrochlorothiazide (Hydrochlorothiazide) 12.5 mg PO DAILY MONSTER Hydromorphone HCl (Dilaudid) 0.25 mg IVPUSH Q2H PRN PRN Reason: Pain (severe 7-10) Promethazine HCl 12.5 mg/ (Sodium Chloride) 50.5 mls @ 100 mls/hr IV Q6H PRN PRN Reason: Nausea/Vomiting Esmolol HCl (Brevibloc In Ns Premix) 2.5 gm in 250 mls @ 46.2 mls/hr IV TITRATE MONSTER; 50 MCG/KG/MIN PRN Reason: Protocol Lisinopril (Prinivil) 10 mg PO DAILY MONSTER Lorazepam (Ativan) 1 mg IV Q6H PRN PRN Reason: Anxiety Last Admin: 04/14/17 07:44 Dose: 1 mg Lorazepam (Ativan) 2 mg IVPUSH Q4H PRN PRN Reason: Seizures Magnesium Sulfate (Pharmacy To Dose - Magnesium Replacement) 0 dose .XX ASDIRECTED PRN PRN Reason: RX TO WATCH MAG LEVELS Metoprolol Tartrate (Lopressor) 5 mg IVPUSH Q4H PRN PRN Reason: Tachycardia Last Admin: 04/13/17 16:56 Dose: 5 mg Ondansetron HCl (Zofran) 4 mg IV Q6H PRN PRN Reason: Nausea/Vomiting Polyethylene Glycol (Miralax) 17 gm PO DAILY PRN PRN Reason: Constipation Potassium Chloride (Pharmacy To Dose - Potassium Replacement) 0 dose .XX ASDIRECTED PRN PRN Reason: RX TO WATCH K LEVELS Senna/Docusate Sodium (Senna Plus) 1 tab PO BID PRN PRN Reason: Constipation Simvastatin (Zocor) 40 mg PO BEDTIME MONSTER Temazepam (Restoril) 15 mg PO BEDTIME PRN PRN Reason: Sleep Last Admin: 04/13/17 21:20 Dose: 15 mg Discontinued Medications Aspirin (Aspirin) 324 mg PO ONETIME ONE Stop: 04/13/17 13:01 Last Admin: 04/13/17 13:14 Dose: 324 mg Digoxin (Lanoxin) 250 mcg IVPUSH Q6H MONSTER Stop: 04/14/17 07:01 Last Admin: 04/14/17 06:25 Dose: 250 mcg Diltiazem HCl (Diltiazem) 10 mg IVPUSH ONETIME ONE Stop: 04/13/17 13:03 Last Admin: 04/13/17 17:29 Dose: Not Given Diltiazem HCl (Diltiazem) 20 mg IVPUSH ONETIME ONE Stop: 04/13/17 13:04 Last Admin: 04/13/17 13:11 Dose: 20 mg Diltiazem HCl (Diltiazem) 20 mg IVPUSH ONETIME ONE Stop: 04/13/17 13:40 Last Admin: 04/13/17 13:50 Dose: 20 mg Hydromorphone HCl (Dilaudid) 0.25 mg IVPUSH Q2H PRN PRN Reason: Pain (severe 7-10) Magnesium Sulfate 2 gm/ Premix 50 mls @ 25 mls/hr IV ONETIME ONE Stop: 04/13/17 15:01 Last Admin: 04/13/17 13:15 Dose: 25 mls/hr Sodium Chloride (Normal Saline) 1,000 mls @ 250 mls/hr IV ASDIRECTED MONSTER Last Admin: 04/13/17 14:23 Dose: 250 mls/hr Sodium Chloride (Normal Saline) 1,000 mls @ 999 mls/hr IV ONETIME ONE Stop: 04/13/17 14:05 Last Admin: 04/13/17 13:10 Dose: 999 mls/hr Diltiazem HCl 125 mg/ Sodium (Chloride) 125 mls @ 5 mls/hr IV TITRATE MONSTER; 5 MG /HR PRN Reason: Protocol Last Titration: 04/14/17 03:53 Dose: 5 mg/hr, 5 mls/hr - Exam General: Alert, Oriented, Cooperative, No Acute Distress HEENT: Pupils Equal, Pupils Reactive, EOMI Lungs: Clear to Auscultation, Normal Respiratory Effort Cardiovascular: Irregular Rhythm, Tachycardia GI/Abdominal Exam: Normal Bowel Sounds, Soft, Non-Tender, No Organomegaly, No Distention, No Mass (Male) Exam: Deferred Extremities: Pedal Edema (1+ edema bilaterally) Peripheral Pulses: 2+: Posterior Tibial (L), Posterior Tibial (R) Skin: Warm, Dry, Intact Neurological: No New Focal Deficit Psy/Mental Status: Alert, Normal Affect, Normal Mood Physical Findings Comments:: He is tachycardic with irregular rhythm. His pulmonary exam was normal. No masses noted in his abdomen. He has 1+ pitting edema bilaterally in his legs. - Problem List Review Problem List Initiated/Reviewed/Updated: Yes - Assessment Assessment:: 1. Atrial fibrillation with RVR 2. Obesity 3. Dyslipidemia - Plan Plan:: Continue on current medications Monitor digoxin levels Currently subtherapeutic at 0.5 Monitor vitals Offer dietary consult due to high caffeine intake and dyslipidemia Routine care <Rebeca Franz T - Last Filed: 04/14/17 17:53> - General Info Admission Dx/Problem (Free Text): New Onset of Atrial Fibrillation with RVR Subjective Update: Follow Up Functional Status: Reports: Pain Controlled, Tolerating Diet, Ambulating, Urinating, New Symptoms (He did not feel right this morning and complaints of shortness of breath) - Review of Systems General: Denies: Fever, Chills HEENT: Reports: No Symptoms Pulmonary: Reports: Shortness of Breath Cardiovascular: Denies: Chest Pain, Dyspnea on Exertion, Edema, Lightheadedness Gastrointestinal: Denies: Abdominal Pain, Nausea, Vomiting Genitourinary: Reports: No Symptoms Musculoskeletal: Reports: No Symptoms Skin: Denies: Cyanosis, Pallor, Diaphoresis, Rash Neurological: Denies: Confusion, Dizziness, Headache, Difficulty Walking, Weakness, Gait Disturbance Psychiatric: Denies: No Symptoms, Depression, Anxiety, Agitation, Hallucinations Systems Review Comment:: He did not sleep well overnight. He was not able to tell me why. It appears he is not responding to Cardizem drip and Digoxin well. Nurse ended up having to bump his rate to 10 from 5 this am. He denies any other acute issues other than what was mentioned above. - Patient Data Vitals - Most Recent: Last Vital Signs Temp 36.0 C 04/14/17 15:04 Pulse 92 04/14/17 11:06 Resp 20 04/14/17 15:04 BP 115/86 04/14/17 15:04 Pulse Ox 99 04/14/17 15:04 I&O - Last 24 Hours: Intake & Output 04/14/17 04/14/17 04/14/17 06:59 14:59 22:59 Intake Total 350 760 115 Balance 350 760 115 Lab Results Last 24 Hours: Laboratory Results - last 24 hr 04/14/17 04/14/17 04/14/17 Range/Units 06:17 06:17 06:17 WBC 9.01 (4.23-9.07) K/mm3 RBC 5.35 (4.63-6.08) M/mm3 Hgb 16.7 (13.7-17.5) gm/L Hct 48.8 (40.1-51.0) % MCV 91.2 (79.0-92.2) fl MCH 31.2 (25.7-32.2) pg MCHC 34.2 (32.2-35.5) g/dl RDW Std Deviation 42.6 (35.1-43.9) fL Plt Count 203 (163-337) K/mm3 MPV 11.1 (9.4-12.3) fl Neut % (Auto) 60.6 (34.0-67.9) % Lymph % (Auto) 26.7 (21.8-53.1) % [place] % (Auto) 8.4 (5.3-12.2) % Eos % (Auto) 3.0 (0.8-7.0) Baso % (Auto) 1.0 (0.1-1.2) % Neut # (Auto) 5.45 H (1.78-5.38) K/mm3 Lymph # (Auto) 2.41 (1.32-3.57) K/mm3 [place] # (Auto) 0.76 (0.30-0.82) K/mm3 Eos # (Auto) 0.27 (0.04-0.54) K/mm3 Baso # (Auto) 0.09 H (0.01-0.08) K/mm3 Sodium 138 (136-145) mEq/L Potassium 4.2 (3.5-5.1) mEq/L Chloride 101 (98-107) mEq/L Carbon Dioxide 27 (21-32) mEq/L Anion Gap 14.2 (5-15) BUN 17 (7-18) mg/dL Creatinine 1.2 (0.7-1.3) mg/dL Est Cr Clr Drug Dosing 98.03 mL/min Estimated GFR (MDRD) > 60 (>60) mL/min BUN/Creatinine Ratio 14.2 (14-18) Glucose 113 H (74-106) mg/dL Hemoglobin A1c 6.00 (4.50-6.20) % Calcium 8.9 (8.5-10.1) mg/dL Magnesium 1.9 (1.8-2.4) mg/dl Triglycerides 398 H (<150) mg/dL Cholesterol 189 (<200) mg/dL LDL Cholesterol Direct 100 (<100) mg/dL HDL Cholesterol 40.0 (40-59) mg/dL Digoxin (0.9-2.0) ng/mL 04/14/17 Range/Units 06:17 WBC (4.23-9.07) K/mm3 RBC (4.63-6.08) M/mm3 Hgb (13.7-17.5) gm/L Hct (40.1-51.0) % MCV (79.0-92.2) fl MCH (25.7-32.2) pg MCHC (32.2-35.5) g/dl RDW Std Deviation (35.1-43.9) fL Plt Count (163-337) K/mm3 MPV (9.4-12.3) fl Neut % (Auto) (34.0-67.9) % Lymph % (Auto) (21.8-53.1) % [place] % (Auto) (5.3-12.2) % Eos % (Auto) (0.8-7.0) Baso % (Auto) (0.1-1.2) % Neut # (Auto) (1.78-5.38) K/mm3 Lymph # (Auto) (1.32-3.57) K/mm3 [place] # (Auto) (0.30-0.82) K/mm3 Eos # (Auto) (0.04-0.54) K/mm3 Baso # (Auto) (0.01-0.08) K/mm3 Sodium (136-145) mEq/L Potassium (3.5-5.1) mEq/L Chloride (98-107) mEq/L Carbon Dioxide (21-32) mEq/L Anion Gap (5-15) BUN (7-18) mg/dL Creatinine (0.7-1.3) mg/dL Est Cr Clr Drug Dosing mL/min Estimated GFR (MDRD) (>60) mL/min BUN/Creatinine Ratio (14-18) Glucose (74-106) mg/dL Hemoglobin A1c (4.50-6.20) % Calcium (8.5-10.1) mg/dL Magnesium (1.8-2.4) mg/dl Triglycerides (<150) mg/dL Cholesterol (<200) mg/dL LDL Cholesterol Direct (<100) mg/dL HDL Cholesterol (40-59) mg/dL Digoxin 0.5 L (0.9-2.0) ng/mL Med Orders - Current: Current Medications Acetaminophen (Tylenol) 650 mg PO Q4H PRN PRN Reason: Pain (Mild 1-3)/fever Hydrocodone Bitart/Acetaminophen ([place] 325-5 Mg) 1 tab PO Q4H PRN PRN Reason: Pain (moderate 4-6) Albuterol/Ipratropium (Duoneb 3.0-0.5 Mg/3 Ml) 3 ml NEB Q4H PRN PRN Reason: Shortness Of Breath/wheezing Apixaban (Eliquis) 5 mg PO BID MONSTER Last Admin: 04/14/17 09:31 Dose: 5 mg Bisacodyl (Dulcolax) 5 mg PO DAILY PRN PRN Reason: Constipation Docusate Sodium (Colace) 100 mg PO BID PRN PRN Reason: Constipation Hydralazine HCl (Apresoline) 20 mg IVPUSH Q4H PRN PRN Reason: Hypertension Last Admin: 04/14/17 06:26 Dose: 20 mg Hydrochlorothiazide (Hydrochlorothiazide) 12.5 mg PO DAILY MONSTER Last Admin: 04/14/17 09:30 Dose: 12.5 mg Hydromorphone HCl (Dilaudid) 0.25 mg IVPUSH Q2H PRN PRN Reason: Pain (severe 7-10) Promethazine HCl 12.5 mg/ (Sodium Chloride) 50.5 mls @ 100 mls/hr IV Q6H PRN PRN Reason: Nausea/Vomiting Esmolol HCl (Brevibloc In Ns Premix) 2.5 gm in 250 mls @ 46.2 mls/hr IV TITRATE MONSTER; 50 MCG/KG/MIN PRN Reason: Protocol Last Titration: 04/14/17 09:58 Dose: 75 mcg/kg/min, 69.3 mls/hr Lisinopril (Prinivil) 10 mg PO DAILY MONSTER Last Admin: 04/14/17 09:32 Dose: 10 mg Lorazepam (Ativan) 1 mg IV Q6H PRN PRN Reason: Anxiety Last Admin: 04/14/17 07:44 Dose: 1 mg Lorazepam (Ativan) 2 mg IVPUSH Q4H PRN PRN Reason: Seizures Magnesium Sulfate (Pharmacy To Dose - Magnesium Replacement) 0 dose .XX ASDIRECTED PRN PRN Reason: RX TO WATCH MAG LEVELS Metoprolol Tartrate (Lopressor) 5 mg IVPUSH Q4H PRN PRN Reason: Tachycardia Last Admin: 04/13/17 16:56 Dose: 5 mg Metoprolol Tartrate (Lopressor) 50 mg PO Q12HR MONSTER Last Admin: 04/14/17 11:06 Dose: 50 mg Ondansetron HCl (Zofran) 4 mg IV Q6H PRN PRN Reason: Nausea/Vomiting Polyethylene Glycol (Miralax) 17 gm PO DAILY PRN PRN Reason: Constipation Potassium Chloride (Pharmacy To Dose - Potassium Replacement) 0 dose .XX ASDIRECTED PRN PRN Reason: RX TO WATCH K LEVELS Senna/Docusate Sodium (Senna Plus) 1 tab PO BID PRN PRN Reason: Constipation Simvastatin (Zocor) 40 mg PO BEDTIME MONSTER Last Admin: 04/14/17 09:34 Dose: Not Given Temazepam (Restoril) 15 mg PO BEDTIME PRN PRN Reason: Sleep Last Admin: 04/13/17 21:20 Dose: 15 mg Discontinued Medications Aspirin (Aspirin) 324 mg PO ONETIME ONE Stop: 04/13/17 13:01 Last Admin: 04/13/17 13:14 Dose: 324 mg Digoxin (Lanoxin) 250 mcg IVPUSH Q6H MONSTER Stop: 04/14/17 07:01 Last Admin: 04/14/17 06:25 Dose: 250 mcg Digoxin (Lanoxin) 250 mcg PO ONETIME ONE Stop: 04/14/17 12:01 Last Admin: 04/14/17 15:17 Dose: Not Given Diltiazem HCl (Diltiazem) 10 mg IVPUSH ONETIME ONE Stop: 04/13/17 13:03 Last Admin: 04/13/17 17:29 Dose: Not Given Diltiazem HCl (Diltiazem) 20 mg IVPUSH ONETIME ONE Stop: 04/13/17 13:04 Last Admin: 04/13/17 13:11 Dose: 20 mg Diltiazem HCl (Diltiazem) 20 mg IVPUSH ONETIME ONE Stop: 04/13/17 13:40 Last Admin: 04/13/17 13:50 Dose: 20 mg Hydromorphone HCl (Dilaudid) 0.25 mg IVPUSH Q2H PRN PRN Reason: Pain (severe 7-10) Magnesium Sulfate 2 gm/ Premix 50 mls @ 25 mls/hr IV ONETIME ONE Stop: 04/13/17 15:01 Last Admin: 04/13/17 13:15 Dose: 25 mls/hr Sodium Chloride (Normal Saline) 1,000 mls @ 250 mls/hr IV ASDIRECTED MONSTER Last Admin: 04/13/17 14:23 Dose: 250 mls/hr Sodium Chloride (Normal Saline) 1,000 mls @ 999 mls/hr IV ONETIME ONE Stop: 04/13/17 14:05 Last Admin: 04/13/17 13:10 Dose: 999 mls/hr Diltiazem HCl 125 mg/ Sodium (Chloride) 125 mls @ 5 mls/hr IV TITRATE MONSTER; 5 MG /HR PRN Reason: Protocol Last Titration: 04/14/17 08:00 Dose: 15 mg/hr, 15 mls/hr Metoprolol Succinate (Toprol Xl) 50 mg PO BID MONSTER - Exam General: Alert, Oriented, Cooperative, No Acute Distress, Other (Morbid Obesity) HEENT: Pupils Equal, Pupils Reactive, EOMI, Mucous Membr. Moist/[place] Neck: Supple, Trachea Midline, No JVD, No Thyromegaly, Other (short and thick) Lungs: Clear to Auscultation, Normal Respiratory Effort Cardiovascular: Irregular Rhythm, Other (Irregular rate ) GI/Abdominal Exam: Normal Bowel Sounds, Soft, Non-Tender, No Organomegaly, No Distention, Other (Obese) (Male) Exam: Deferred Back Exam: Normal Inspection, Decreased Range of Motion Extremities: Normal Inspection, Normal Range of Motion, Non-Tender, Pedal Edema (trace edema bilaterally) Peripheral Pulses: 2+: Dorsalis Pedis (L), Dorsalis Pedis (R) Skin: Warm, Dry, Intact Neurological: No New Focal Deficit Psy/Mental Status: Alert, Normal Affect, Normal Mood - Problem List Review Problem List Initiated/Reviewed/Updated: Yes - My Orders Last 24 Hours: My Active Orders 04/13/17 18:04 EKG 12 Lead [EK] Stat 04/13/17 20:53 Apixaban [Eliquis] 5 mg PO BID 04/13/17 21:00 Simvastatin [Zocor] 40 mg PO BEDTIME 04/13/17 21:32 Consult to Dietary [Consult to Spot [place]] [CONS] Routine 04/13/17 Dinner Regular Diet [DIET] 04/14/17 09:00 Esmolol/Normal Saline [Brevibloc in NS Premix] 2.5 gm in 250 ml IV TITRATE Hydrochlorothiazide 12.5 mg PO DAILY Lisinopril [Prinivil] 10 mg PO DAILY EKG 12 Lead [EK] Routine 04/14/17 09:10 HYDROmorphone [Dilaudid] 0.25 mg IVPUSH Q2H PRN 04/14/17 11:00 Metoprolol Tartrate [Lopressor] 50 mg PO Q12HR 04/14/17 14:39 Patient Status [ADT] Routine - Assessment Assessment:: Assessment/Plan: Acute: New Onset of Atrial Fibrillation with RVR - Risk factors: Chronic Alcohol Use and Heavy Caffeine Intake +/- SANDIP - HR in the 170s; his still not fully controlled; it appears more of parasympathetic stimulation - Had similar episode in the past few days if not weeks - Would not benefit with cardioversion due to unknown duration of irregular heart rate - TFT and UDS both negative - Will discontinue Cardizem drip; will start a trial of esmolol drip and then if he respond well will switch to Metoprolol Tartrate 50 mg po BID - [id number] Score is 1 (0.9% Yearly Risk of Stroke) w/o Anticoagulation - Will offer Warfarin vs DOACs; he selected DOACs - No recent GI, Neurologic, Spinal or Any kind of Major Bleed - HAS BLED Score: 2 points (moderate risk for major bleeding) Hyperglycemia - BS 121 - A1C is 6, he has no diabetes Resolved: Hypomagnesemia - Mg 1.7 -> 1.9 - Receive supplement in ED - Will continue to monitor Chronic: HTN HLD, Trig is elevated at 398, continue Statin Probable SANDIP-pending Sleep Study Alcohol Use 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
[2017-04-14] MEDS: Hydrochlorothiazide 12.5 MG Cap PO SCH (09:30)
[2017-04-14] MEDS: Apixaban 5 MG Tab PO SCH ×2 (09:31→20:18)
[2017-04-14] MEDS: Lisinopril 10 MG Tab PO SCH (09:32)
[2017-04-14] MEDS: Simvastatin 40 MG Tab PO SCH ×2 (09:34→20:18)
[2017-04-14] MEDS ORDERED: Metoprolol Succinate 50 MG Tab.ER PO SCH (11:00)
[2017-04-14] MEDS: Metoprolol Tartrate 50 MG Tab PO SCH ×2 (11:06→20:19)
[2017-04-14] MEDS ORDERED: Digoxin 250 MCG Tab PO ONE (12:00)
--- NOTE | 2017-04-14 12:55 | CR ---
Chest: Portable view of the chest was obtained. Comparison: No prior chest x-ray. Heart size and mediastinum are within normal limits for portable technique. Lungs are clear. Bony structures are grossly intact. Impression: 1. Nothing acute is identified on portable chest x-ray. Diagnostic code #1
[2017-04-14] MEDS ORDERED: Temazepam 15 MG Cap PO PRN (19:21)
--- NOTE | 2017-04-15 07:36 | PCM.DCSUM1 ---
Discharge Summary - Hospital Course Brief History: This is a 32-year-old young white male with past medical history of hypertension, hyperlipidemia, and obesity with a BMI of +30 who presents to the emergency department with complaints of heart palpitations associated with shortness of breath and diaphoresis. He was admitted for new onset of atrial fibrillation. - Discharge Data Discharge Date: 04/15/17 Discharge Disposition: Home, Self-Care 01 Condition: Good - Discharge Diagnosis/Problem(s) (1) Atrial fibrillation, new onset SNOMED Code(s): 32159160 ICD Code: I48.91 - UNSPECIFIED ATRIAL FIBRILLATION Status: Acute (2) Hypomagnesemia SNOMED Code(s): 136307731 ICD Code: E83.42 - HYPOMAGNESEMIA Status: Resolved (3) Hyperglycemia SNOMED Code(s): 97697529 ICD Code: R73.9 - HYPERGLYCEMIA, UNSPECIFIED Status: Resolved (4) Hypertension SNOMED Code(s): 32688926 ICD Code: I10 - ESSENTIAL (PRIMARY) HYPERTENSION Status: Chronic Qualifiers: Hypertension type: essential hypertension Qualified Code(s): I10 - Essential (primary) hypertension - Patient Summary/Data Operative Procedure(s) Performed: None Complications: None Consults: Consultations 04/13/17 16:17 Consult to Case Management [CONS] Routine Consult to Material Handling Supervisor [CONS] Routine 04/13/17 21:32 Consult to Dietary [Consult to Automotive Specialty Technician] [CONS] Routine Labs Pending at D/C: None Recommended Follow-up Testing/Procedures: None Hospital Course: Patient was primarily admitted for medical management of new onset of atrial fibrillation with RVR. Patient carried no past medical history related to abnormal rhythm. He denied history of thyroid disease or diabetes. He further denied any history of smoking but admitted to occasional alcohol use. However his risk factors included a history of PTSD, anxiety and heavy daily caffeine intake (over 5L of soda per ). On presentation to the emergency department, he was found with a fast heart rate as high as 140s. His initial workup revealed patient had irregularly irregular rhythm. Unfortunately, patient was not cardioverted due to unknown duration of his symptom. However he received initial rate control treatment before he was sent to the unit for further management. In the unit, Cardizem drip was continued and later on digoxin was added for further rate control. The patient barely responded to this treatment. Given that patient had no obvious triggers for his irregular rhythm, we felt he may have had cardiac over stimulation from parasympathetic nervous system. Therefore we elected to treat him with esmolol drip and he responded beautifully on this regimen. After his esmolol drip was stopped, he was immediately started on oral metoprolol. Patient continued to have a controlled heart rate and finally converted chemically to normal sinus rhythm. His hospital course was uncomplicated with the exception of electrolyte abnormality. However we were quick to resolve it prior to discharge. Patient had done well since admission. The rest of his chronic medical illness remained fairly stable during this admission. Patient was discharged with Metoprolol 50 mg by mouth twice a day for rate control medication along with Eliquis 5 mg by mouth twice a day for stroke prophylaxis. His 2-D echo report was still pending but will be forwarded to his PCP as soon as report becomes available for review. He was advised to check his blood pressure at least twice a day and 3-4 times a week. His log will be reviewed by his PCP on his follow-up appointment. Lastly, he will be set up for cardiology eval after discharge. Patient was further advised to come back or seek immediate care should his symptoms persist or get worse. The patient expressed understanding and in agreement with the plans as discussed above. All questions were answered. - Patient Instructions Diet: Usual Diet as Tolerated, Weight Loss Diet Activity: As Tolerated Driving: May Drive Today Showering/Bathing: May Shower Notify Provider of: Fever, Nausea and/or Vomiting Other/Special Instructions: - Please take all medications as directed. - We recommned lifestyle modificaions: regular exercise, weight loss, proper diet. - Check your blood pressure at least twice a day and 2-4 times a week. Show log on your follow up appointment with your family doctor. - Keep your appointment with cardiology as schedueled. - Follow up with your doctor in 1 week. - Come back or seek immediate care should your symptoms persist or get worse - Discharge Plan Prescriptions/Med Rec: Metoprolol Tartrate [Lopressor] 50 mg PO Q12HR #60 tablet Apixaban [Eliquis] 5 mg PO BID #60 tablet Home Medications: Home Meds Fish Oil/[place]-3 Fatty Acids [Fish Oil 1,000 MG] 1 each PO DAILY 04/13/17 [ History] Hydrochlorothiazide 12.5 mg PO DAILY 04/13/17 [History] Lisinopril 10 mg PO DAILY 04/13/17 [History] Simvastatin [Zocor] 40 mg PO BEDTIME 04/13/17 [History] Apixaban [Eliquis] 5 mg PO BID #60 tablet 04/15/17 [Rx] Metoprolol Tartrate [Lopressor] 50 mg PO Q12HR #60 tablet 04/15/17 [Rx] Patient Handouts: Smoking Cessation, Tips for Success, [id number], Apixaban oral tablets, Atrial Fibrillation, [id number] Referrals: Ronna Lea DO [Primary Care Provider] - (Follow-up with your doctor to discuss blood thinner options if Eliquis is too costly after free 30-day supply runs out.) - Discharge Summary/Plan Comment DC Time >30 min.: Yes (45 mins) Discharge Summary/Plan Comment: Discharge to Home - General Info Date of Service: 04/15/17 Admission Dx/Problem (Free Text: New Onset of Atrial Fibrillation with RVR Subjective Update: Follow Up Functional Status: Reports: Pain Controlled, Tolerating Diet, Ambulating, Urinating. Denies: New Symptoms - Review of Systems General: Denies: Fever, Weakness, Fatigue, Malaise, Chills HEENT: Reports: No Symptoms Pulmonary: Denies: Shortness of Breath Cardiovascular: Denies: Chest Pain, Palpitations, Dyspnea on Exertion, Lightheadedness Gastrointestinal: Denies: Abdominal Pain, Nausea, Vomiting Genitourinary: Reports: No Symptoms Musculoskeletal: Reports: No Symptoms Skin: Denies: Cyanosis, Diaphoresis, Rash Neurological: Denies: Dizziness, Pre-Existing Deficit, Syncope, Difficulty Walking, Weakness, Gait Disturbance Psychiatric: Denies: Confusion, Depression, Anxiety, Agitation, Hallucinations - Patient Data Vitals - Most Recent: Last Vital Signs Temp 36.2 C 04/15/17 04:00 Pulse 71 04/15/17 04:00 Resp 19 04/15/17 04:00 BP 128/88 04/15/17 00:00 Pulse Ox 97 04/15/17 04:00 Weight - Most Recent: 153.269 kg I&O - Last 24 hours: Intake & Output 04/14/17 04/15/17 04/15/17 22:59 06:59 14:59 Intake Total 835 800 Balance 835 800 Med Orders - Current: Current Medications Acetaminophen (Tylenol) 650 mg PO Q4H PRN PRN Reason: Pain (Mild 1-3)/fever Hydrocodone Bitart/Acetaminophen ([place] 325-5 Mg) 1 tab PO Q4H PRN PRN Reason: Pain (moderate 4-6) Albuterol/Ipratropium (Duoneb 3.0-0.5 Mg/3 Ml) 3 ml NEB Q4H PRN PRN Reason: Shortness Of Breath/wheezing Apixaban (Eliquis) 5 mg PO BID [facility] Last Admin: 04/14/17 20:18 Dose: 5 mg Bisacodyl (Dulcolax) 5 mg PO DAILY PRN PRN Reason: Constipation Docusate Sodium (Colace) 100 mg PO BID PRN PRN Reason: Constipation Hydralazine HCl (Apresoline) 20 mg IVPUSH Q4H PRN PRN Reason: Hypertension Last Admin: 04/14/17 06:26 Dose: 20 mg Hydrochlorothiazide (Hydrochlorothiazide) 12.5 mg PO DAILY [facility] Last Admin: 04/14/17 09:30 Dose: 12.5 mg Hydromorphone HCl (Dilaudid) 0.25 mg IVPUSH Q2H PRN PRN Reason: Pain (severe 7-10) Promethazine HCl 12.5 mg/ (Sodium Chloride) 50.5 mls @ 100 mls/hr IV Q6H PRN PRN Reason: Nausea/Vomiting Esmolol HCl (Brevibloc In Ns Premix) 2.5 gm in 250 mls @ 46.2 mls/hr IV TITRATE MONSTER; 50 MCG/KG/MIN PRN Reason: Protocol Last Titration: 04/14/17 09:58 Dose: 75 mcg/kg/min, 69.3 mls/hr Lisinopril (Prinivil) 10 mg PO DAILY [facility] Last Admin: 04/14/17 09:32 Dose: 10 mg Lorazepam (Ativan) 1 mg IV Q6H PRN PRN Reason: Anxiety Last Admin: 04/14/17 20:20 Dose: 1 mg Lorazepam (Ativan) 2 mg IVPUSH Q4H PRN PRN Reason: Seizures Magnesium Sulfate (Pharmacy To Dose - Magnesium Replacement) 0 dose .XX ASDIRECTED PRN PRN Reason: RX TO WATCH MAG LEVELS Metoprolol Tartrate (Lopressor) 5 mg IVPUSH Q4H PRN PRN Reason: Tachycardia Last Admin: 04/13/17 16:56 Dose: 5 mg Metoprolol Tartrate (Lopressor) 50 mg PO Q12HR [facility] Last Admin: 04/14/17 20:19 Dose: 50 mg Ondansetron HCl (Zofran) 4 mg IV Q6H PRN PRN Reason: Nausea/Vomiting Polyethylene Glycol (Miralax) 17 gm PO DAILY PRN PRN Reason: Constipation Potassium Chloride (Pharmacy To Dose - Potassium Replacement) 0 dose .XX ASDIRECTED PRN PRN Reason: RX TO WATCH K LEVELS Senna/Docusate Sodium (Senna Plus) 1 tab PO BID PRN PRN Reason: Constipation Simvastatin (Zocor) 40 mg PO BEDTIME [facility] Last Admin: 04/14/17 20:18 Dose: 40 mg Temazepam (Restoril) 30 mg PO BEDTIME PRN PRN Reason: Sleep Last Admin: 04/14/17 20:20 Dose: 30 mg Discontinued Medications Aspirin (Aspirin) 324 mg PO ONETIME ONE Stop: 04/13/17 13:01 Last Admin: 04/13/17 13:14 Dose: 324 mg Digoxin (Lanoxin) 250 mcg IVPUSH Q6H [facility] Stop: 04/14/17 07:01 Last Admin: 04/14/17 06:25 Dose: 250 mcg Digoxin (Lanoxin) 250 mcg PO ONETIME ONE Stop: 04/14/17 12:01 Last Admin: 04/14/17 15:17 Dose: Not Given Diltiazem HCl (Diltiazem) 10 mg IVPUSH ONETIME ONE Stop: 04/13/17 13:03 Last Admin: 04/13/17 17:29 Dose: Not Given Diltiazem HCl (Diltiazem) 20 mg IVPUSH ONETIME ONE Stop: 04/13/17 13:04 Last Admin: 04/13/17 13:11 Dose: 20 mg Diltiazem HCl (Diltiazem) 20 mg IVPUSH ONETIME ONE Stop: 04/13/17 13:40 Last Admin: 04/13/17 13:50 Dose: 20 mg Hydromorphone HCl (Dilaudid) 0.25 mg IVPUSH Q2H PRN PRN Reason: Pain (severe 7-10) Magnesium Sulfate 2 gm/ Premix 50 mls @ 25 mls/hr IV ONETIME ONE Stop: 04/13/17 15:01 Last Admin: 04/13/17 13:15 Dose: 25 mls/hr Sodium Chloride (Normal Saline) 1,000 mls @ 250 mls/hr IV ASDIRECTED MONSTER Last Admin: 04/13/17 14:23 Dose: 250 mls/hr Sodium Chloride (Normal Saline) 1,000 mls @ 999 mls/hr IV ONETIME ONE Stop: 04/13/17 14:05 Last Admin: 04/13/17 13:10 Dose: 999 mls/hr Diltiazem HCl 125 mg/ Sodium (Chloride) 125 mls @ 5 mls/hr IV TITRATE MONSTER; 5 MG /HR PRN Reason: Protocol Last Titration: 04/14/17 08:00 Dose: 15 mg/hr, 15 mls/hr Metoprolol Succinate (Toprol Xl) 50 mg PO BID [facility] Temazepam (Restoril) 15 mg PO BEDTIME PRN PRN Reason: Sleep Last Admin: 04/13/17 21:20 Dose: 15 mg - Exam General: Reports: Alert, Oriented, Cooperative, No Acute Distress, Other ( Morbid Obesity) HEENT: Reports: Pupils Equal, Pupils Reactive, EOMI, Mucous Membr. Moist/[place] Neck: Reports: Supple, Trachea Midline, Other (short and thick) Lungs: Reports: Clear to Auscultation, Normal Respiratory Effort Cardiovascular: Reports: Regular Rate, Regular Rhythm, Murmurs GI/Abdominal Exam: Normal Bowel Sounds, Soft, No Organomegaly, No Distention, No Mass (Male) Exam: Deferred Rectal (Males) Exam: Deferred Back Exam: Reports: Normal Inspection, Decreased Range of Motion Extremities: Normal Inspection, Normal Range of Motion, Non-Tender, No Pedal Edema, Normal Capillary Refill Skin: Reports: Warm, Dry, Intact Neurological: Reports: No New Focal Deficit Psy/Mental Status: Reports: Alert, Normal Affect, Normal Mood *Q Meaningful Use (DIS) - VTE *Q VTE Criteria *Q: - Stroke *Q Stroke Criteria *Q: - AMI *Q AMI Criteria *Q:
[2017-04-15] MEDS: Metoprolol Tartrate 50 MG Tab PO SCH (08:06)
[2017-04-15] MEDS: Hydrochlorothiazide 12.5 MG Cap PO SCH (08:07)
[2017-04-15] MEDS: Apixaban 5 MG Tab PO SCH (08:07)
[2017-04-15] MEDS: Lisinopril 10 MG Tab PO SCH (08:07)
[2017-04-15 08:08] VITALS: BP 150/103
[2017-04-15] MEDS ORDERED: FLU Vacc QS 2017-18 (6mos UP)/PF 60 MCG/0.5 ML Syringe IM ONE (08:16)
== END 2017-04-15 09:38 | disposition home or self-care (01) | DRG 309 ==
LOC: JD.ED 12:41 → JD.ICU 15:56 → UNDOADMIN 15:56 → JD.ICU 15:59
PROVIDERS: ADMIT Internal Medicine; ATTEND Internal Medicine
DX: I48.91 Unspecified atrial fibrillation (principal); Z68.41 Body mass index [BMI] 40.0-44.9, adult; E83.42 Hypomagnesemia; R73.9 Hyperglycemia, unspecified; I10 Essential (primary) hypertension; E78.5 Hyperlipidemia, unspecified; G47.33 Obstructive sleep apnea (adult) (pediatric); E66.9 Obesity, unspecified; Z72.89 Other problems related to lifestyle; Z82.49 Family history of ischemic heart disease and other diseases of the circulatory system; Z79.899 Other long term (current) drug therapy
CPT/HCPCS: 36415; 71010; 71010-26; 80048; 80053; 80061; 80162; 80306; 81001; 83036; 83735; 84443; 84484; 85025; 90686; 93005; 93306; 96361; 96365; 96366; 96367; 96376; 99223; 99233; 99239; 99285; 99285-25; A9270-GY; J0360; J1160; J2060; J3475; J3490; J7030; J7040

== ENCOUNTER 2019-08-02 09:36 | Emergency (ER) | payer BC, OTHER ==
[2019-08-02 09:53] VITALS: BP 133/109; PULSE 113
[2019-08-02] MEDS ORDERED: Sodium Chloride 0.9% 10 ML Syringe FLUSH PRN (09:56)
[2019-08-02 11:03] LABS: HEMOGLOBIN A1C 9.3 % (4.50-6.20)
[2019-08-02] MEDS ORDERED: Sodium Chloride 0.9% 1,000 ML IV ONE (11:22)
[2019-08-02] MEDS ORDERED: Insulin Regular, Human 100 Units/ML 3 ML Vial SUBCUT ONE (11:25)
[2019-08-02] MEDS ORDERED: metFORMIN 500 MG Tab PO ONE ×2 (11:31→14:45)
--- NOTE | 2019-08-02 11:31 | EDM.PDOC ---
<Gina Todd - Last Filed: 08/02/19 11:34> ED HPI GENERAL MEDICAL PROBLEM - General Chief Complaint: Eye Problems Stated Complaint: BLURRED VISION Time Seen by Provider: 08/02/19 09:52 Source of Information: Reports: Patient History Limitations: Reports: No Limitations - History of Present Illness INITIAL COMMENTS - FREE TEXT/NARRATIVE: 34-year-old male presents with blurred vision that started on Thursday. He states that the blurriness appears to be in both eyes, with the right eye being slightly worse. He is able to see near objects, but has difficulty seeing distances. No loss of peripheral vision. On Thursday, he started having more frequent urination with increasing amounts of urine. He notes that he has been drinking a lot of juice over the weekend. This morning, he went to the ID clinic where they found he had elevated glucose levels in the 300s. His A1C was >9. He has no history of diabetes but does have a history of hypertension. The patient notes [facility], but he has not taken the medication yet as the medication is coming via mail order. Duration: Constant Improves with: Reports: None Worsens with: Reports: None Associated Symptoms: Reports: Headaches (mild), Other (polyuria ) - Related Data Allergies Allergy/AdvReac Type Severity Reaction Status Date / Time No Known Allergies Allergy Verified 08/02/19 09:53 Home Meds: Home Meds Hydrochlorothiazide 12.5 mg PO DAILY 04/13/17 [History] Lisinopril 10 mg PO DAILY 04/13/17 [History] Simvastatin [Zocor] 80 mg PO BEDTIME 04/13/17 [History] Apixaban [Eliquis] 5 mg PO BID #60 tablet 04/15/17 [Rx] Metoprolol Tartrate [Lopressor] 50 mg PO Q12HR #60 tablet 04/15/17 [Rx] Amoxicillin 500 mg PO BID 08/02/19 [History] Cholecalciferol (Vitamin D3) [Vitamin D] 5,000 units PO BID 08/02/19 [History] ED ROS GENERAL - Review of Systems Review Of Systems: See Below Constitutional: Reports: No Symptoms HEENT: Reports: Ear Pain (bilateral, from a recent infection), Glasses (history of astigmatism (unsure of what eye)), Vision Change (blurriness since Thursday, decreased distance vision). Denies: Ear Discharge, Eye Discharge, Eye Pain, Sinus Problem Respiratory: Reports: No Symptoms Cardiovascular: Reports: Blood Pressure Problem, Dyspnea on Exertion (states it is due to being overweight). Denies: Chest Pain, Lightheadedness, Palpitations , Syncope Endocrine: Reports: High Glucose, Polyuria GI/Abdominal: Reports: No Symptoms : Reports: Frequency. Denies: Dysuria, Hematuria, Incontinence Musculoskeletal: Reports: No Symptoms Skin: Reports: No Symptoms Neurological: Reports: Headache (mild), Tingling (in his feet at night, feels it is due to how he sleeps). Denies: Confusion, Dizziness, Numbness, Syncope, Trouble Speaking, Difficulty Walking, Change in Speech Psychiatric: Reports: No Symptoms Hematologic/Lymphatic: Reports: No Symptoms Immunologic: Reports: No Symptoms ED EXAM GENERAL W FULL EYE - Physical Exam Exam: See Below Exam Limited By: No Limitations General Appearance: Alert, WD/WN, No Apparent Distress Eye Exam: Bilateral Eye: EOMI, Normal Inspection, PERRL, Vision Changes ( blurriness), Other (red relfex intact, unable to get a clear image of fundi ) Eyelids: Bilateral: Normal Appearance Conjunctiva & Sclera: Bilateral: Normal Appearance Cornea Exam: Bilateral: Normal Appearance Extraocular Movements: Bilateral: Intact Pupils: Normal Accommodation Pupillary Reaction: Bilateral: Brisk Respiratory/Chest: No Respiratory Distress, Lungs Clear, Normal Breath Sounds, No Accessory Muscle Use, Chest Non-Tender Cardiovascular: Normal Peripheral Pulses, Regular Rate, Rhythm, No Murmur GI/Abdominal: Normal Bowel Sounds, Soft, Non-Tender Neurological: Alert, Oriented, Normal Cognition Psychiatric: Normal Affect, Normal Mood Skin Exam: Warm, Dry, Intact, Normal Color, No Rash Course - Vital Signs Last Recorded V/S: Last Vital Signs Temp 96.9 F 08/02/19 09:51 Pulse 113 H 08/02/19 09:51 Resp 20 08/02/19 09:51 BP 133/109 H 08/02/19 09:51 Pulse Ox 93 L 08/02/19 09:51 - Orders/Labs/Meds Orders: Active Orders 24 hr Category Date Time Status Blood Glucose Check, Bedside [RC] ONETIME Care 08/02/19 12:37 Active Peripheral IV Care [RC] . DIRECTED Care 08/02/19 09:56 Active Consult to Diabetic Nurse Specialist [CONS] Urgent Cons 08/02/19 12:14 Ordered Consult to Bi Consultant [CONS] Routine Cons 08/02/19 13:50 Active Sodium Chloride 0.9% [Saline Flush] Med 08/02/19 09:56 Active 10 ml FLUSH ASDIRECTED PRN metFORMIN [Glucophage] Med 08/02/19 14:45 Once 2,000 mg PO ONETIME ONE Peripheral IV Insertion Adult [OM.PC] Stat Oth 08/02/19 09:56 Ordered Medication Orders Sodium Chloride (Saline Flush) 10 ml FLUSH ASDIRECTED PRN PRN Reason: Keep Vein Open Last Admin: 08/02/19 10:24 Dose: 10 ml Labs: Laboratory Tests 08/02/19 08/02/19 08/02/19 Range/Units 10:20 10:20 10:20 WBC 8.60 (4.23-9.07) K/mm3 RBC 5.80 (4.63-6.08) M/mm3 Hgb 17.5 (13.7-17.5) gm/dl Hct 49.4 (40.1-51.0) % MCV 85.2 D (79.0-92.2) fl MCH 30.2 (25.7-32.2) pg MCHC 35.4 (32.2-35.5) g/dl RDW Std Deviation 38.2 (35.1-43.9) fL Plt Count 247 (163-337) K/mm3 MPV 11.8 (9.4-12.3) fl Neutrophils % (Manual) 69 H (40-60) % Band Neutrophils % 0 (0-10) % Lymphocytes % (Manual) 22 (20-40) % Atypical Lymphs % 0 % Monocytes % (Manual) 7 (2-10) % Eosinophils % (Manual) 0 L (0.8-7.0) % Basophils % (Manual) 2 H (0.2-1.2) Platelet Estimate Adequate RBC Morph Comment Normal Sodium 128 L D (136-145) mEq/L Potassium 3.8 (3.5-5.1) mEq/L Chloride 89 L D (98-107) mEq/L Carbon Dioxide 26 (21-32) mEq/L Anion Gap 16.8 H (5-15) BUN 29 H (7-18) mg/dL Creatinine 1.2 (0.7-1.3) mg/dL Est Cr Clr Drug Dosing 96.18 mL/min Estimated GFR (MDRD) > 60 (>60) mL/min BUN/Creatinine Ratio 24.2 H (14-18) Glucose 392 H (74-106) mg/dL POC Glucose (70-105) mg/dL Hemoglobin A1c 9.30 H (4.50-6.20) % Calcium 9.5 (8.5-10.1) mg/dL Total Bilirubin 0.6 (0.2-1.0) mg/dL AST 22 (15-37) U/L ALT 42 (16-63) U/L Alkaline Phosphatase 81 (46-116) U/L Total Protein 8.3 H (6.4-8.2) g/dl Albumin 3.9 (3.4-5.0) g/dl Globulin 4.4 gm/dL Albumin/Globulin Ratio 0.9 L (1-2) Urine Color (Yellow) Urine Appearance (Clear) Urine pH (5.0-8.0) Ur Specific [place] (1.005-1.030) Urine Protein (Negative) Urine Glucose (UA) (Negative) Urine Ketones (Negative) Urine Occult Blood (Negative) Urine Nitrite (Negative) Urine Bilirubin (Negative) Urine Urobilinogen (0.2-1.0) Ur Leukocyte Esterase (Negative) Urine RBC (0-5) /hpf Urine WBC (0-5) /hpf Ur Epithelial Cells (0-5) /hpf Urine Bacteria (FEW) /hpf Coarse Granular Casts (0-5) /hpf Urine Mucus (FEW) /hpf Ur Yeast w Hyphae (NOT SEEN) Urine Yeast (Budding) (NOT SEEN) 08/02/19 08/02/19 Range/Units 11:10 12:30 WBC (4.23-9.07) K/mm3 RBC (4.63-6.08) M/mm3 Hgb (13.7-17.5) gm/dl Hct (40.1-51.0) % MCV (79.0-92.2) fl MCH (25.7-32.2) pg MCHC (32.2-35.5) g/dl RDW Std Deviation (35.1-43.9) fL Plt Count (163-337) K/mm3 MPV (9.4-12.3) fl Neutrophils % (Manual) (40-60) % Band Neutrophils % (0-10) % Lymphocytes % (Manual) (20-40) % Atypical Lymphs % % Monocytes % (Manual) (2-10) % Eosinophils % (Manual) (0.8-7.0) % Basophils % (Manual) (0.2-1.2) Platelet Estimate RBC Morph Comment Sodium (136-145) mEq/L Potassium (3.5-5.1) mEq/L Chloride (98-107) mEq/L Carbon Dioxide (21-32) mEq/L Anion Gap (5-15) BUN (7-18) mg/dL Creatinine (0.7-1.3) mg/dL Est Cr Clr Drug Dosing mL/min Estimated GFR (MDRD) (>60) mL/min BUN/Creatinine Ratio (14-18) Glucose (74-106) mg/dL POC Glucose 360 H (70-105) mg/dL Hemoglobin A1c (4.50-6.20) % Calcium (8.5-10.1) mg/dL Total Bilirubin (0.2-1.0) mg/dL AST (15-37) U/L ALT (16-63) U/L Alkaline Phosphatase (46-116) U/L Total Protein (6.4-8.2) g/dl Albumin (3.4-5.0) g/dl Globulin gm/dL Albumin/Globulin Ratio (1-2) Urine Color Yellow (Yellow) Urine Appearance Clear (Clear) Urine pH 5.5 (5.0-8.0) Ur Specific [place] 1.025 (1.005-1.030) Urine Protein 3+ H (Negative) Urine Glucose (UA) 2+ H (Negative) Urine Ketones 1+ H (Negative) Urine Occult Blood 1+ H (Negative) Urine Nitrite Negative (Negative) Urine Bilirubin Negative (Negative) Urine Urobilinogen 0.2 (0.2-1.0) Ur Leukocyte Esterase Negative (Negative) Urine RBC 0-5 (0-5) /hpf Urine WBC 5-10 H (0-5) /hpf Ur Epithelial Cells 5-10 H (0-5) /hpf Urine Bacteria Rare (FEW) /hpf Coarse Granular Casts 5-10 H (0-5) /hpf Urine Mucus Few (FEW) /hpf Ur Yeast w Hyphae Rare H (NOT SEEN) Urine Yeast (Budding) Rare H (NOT SEEN) Meds: Medications Generic Name Dose Route Start Last Admin Trade Name Freminoo PRN Reason Stop Dose Admin Sodium Chloride 10 ml 08/02/19 09:56 08/02/19 10:24 Saline Flush FLUSH 10 ml ASDIRECTED PRN Administration Keep Vein Open Discontinued Medications Generic Name Dose Route Start Last Admin Trade Name Freq PRN Reason Stop Dose Admin Sodium Chloride 1,000 mls @ 999 mls/hr 08/02/19 11:22 08/02/19 11:35 Normal Saline IV 08/02/19 12:22 999 mls/hr ONETIME ONE Administration Insulin Human Regular 8 unit 08/02/19 11:25 08/02/19 11:40 Humulin R SUBCUT 08/02/19 11:26 8 unit ONETIME ONE Administration Metformin HCl 500 mg 08/02/19 11:31 08/02/19 11:39 Glucophage PO 08/02/19 11:32 500 mg ONETIME ONE Administration Departure - Departure Disposition: Home, Self-Care 01 Clinical Impression: New onset type 2 diabetes mellitus - Discharge Information Instructions: Type 2 Diabetes Mellitus, Self Care, Adult, [id number] Referrals: Shawnee Wtakins MD [Primary Care Provider] - Forms: ED Department Discharge Additional Instructions: You were evaluated in the ER today regarding your blurred vision and other complaints. You have been diagnosed with new onset type II, you were given some IV fluids diabetes mellitus type, 1 dose of metformin, and some insulin in the ER to help lower your sugars. Your blurred vision is likely due to the elevated blood sugars that you have been having. You will need to take your metformin as directed, 500 mg twice BID. Your primary care provider should provide you with a glucose monitor for blood sugar management. Please take your blood sugars 2 times a day and keep a record of this in a journal. Highly recommend you obtain an appointment with your provider next week for re- evaluation and to make sure that your blood sugars are coming down as expected. You did receive a visit from our simulation educator and dietitian at today's ER visit to help guide you through this new diagnosis. Please return to the ED if your symptoms change or worsen. Sepsis Event Note - Focused Exam Vital Signs: Vital Signs Temp Pulse Resp BP Pulse Ox 08/02/19 09:51 96.9 F 113 H 20 133/109 H 93 L Date Exam was Performed: 08/02/19 Time Exam was Performed: 11:34 - My Orders Last 24 Hours: My Active Orders 08/02/19 09:56 Peripheral IV Care [RC] . DIRECTED Sodium Chloride 0.9% [Saline Flush] 10 ml FLUSH ASDIRECTED PRN Peripheral IV Insertion Adult [OM.PC] Stat 08/02/19 12:14 Consult to Diabetic Nurse Specialist [CONS] Urgent 08/02/19 12:37 Blood Glucose Check, Bedside [RC] ONETIME 08/02/19 13:50 Consult to Bi Consultant [CONS] Routine 08/02/19 14:45 metFORMIN [Glucophage] 2,000 mg PO ONETIME ONE - Assessment/Plan Last 24 Hours: My Active Orders 08/02/19 09:56 Peripheral IV Care [RC] . DIRECTED Sodium Chloride 0.9% [Saline Flush] 10 ml FLUSH ASDIRECTED PRN Peripheral IV Insertion Adult [OM.PC] Stat 08/02/19 12:14 Consult to Diabetic Nurse Specialist [CONS] Urgent 08/02/19 12:37 Blood Glucose Check, Bedside [RC] ONETIME 08/02/19 13:50 Consult to Bi Consultant [CONS] Routine 08/02/19 14:45 metFORMIN [Glucophage] 2,000 mg PO ONETIME ONE <Dasha Fish - Last Filed: 08/02/19 14:46> ED HPI GENERAL MEDICAL PROBLEM - History of Present Illness INITIAL COMMENTS - FREE TEXT/NARRATIVE: I have read and reviewed the student's HPI and examined the patient and agree with SIM Owen-student. Past Medical History HEENT History: Reports: None, Impaired Vision Cardiovascular History: Reports: Afib, High Cholesterol, Hypertension Respiratory History: Reports: Sleep Apnea, Other (See Below) Other Respiratory History: pleurisy, pneumonia and mono together as a child Gastrointestinal History: Reports: None Genitourinary History: Reports: None Other Genitourinary History: enlarged prostate Musculoskeletal History: Reports: None Neurological History: Reports: None Psychiatric History: Reports: None Endocrine/Metabolic History: Reports: None Hematologic History: Reports: None Immunologic History: Reports: None Oncologic (Cancer) History: Reports: None Dermatologic History: Reports: None - Infectious Disease History Infectious Disease History: Reports: None - Past Surgical History Head Surgeries/Procedures: Reports: None HEENT Surgical History: Reports: Oral Surgery Male Surgical History: Reports: None Social & Family History - Family History Family Medical History: Noncontributory Cardiac: Reports: Bypass, Hypertension - Tobacco Use Smoking Status *Q: Light Tobacco Smoker Years of Tobacco use: 15 Packs/Tins Daily: 0.1 - Caffeine Use Caffeine Use: Reports: Coffee, Soda, Tea - Recreational Drug Use Recreational Drug Use: No Course - Re-Assessments/Exams Free Text/Narrative Re-Assessment/Exam: 08/02/19 11:25 Patient presents to the ED for evaluation of multiple complaints. Of note the patient is morbidly obese, his BMI is 47.9. He has been having polydipsia, blurred vision, elevated blood sugars, and has a history of hypertension. He was evaluated by the nurse practitioner at the ID today, and sent to our facility for further evaluation due to his symptoms. Upon review of his labs and records, it would appear that he is having diabetic eye changes. He states that he had a prior eye exam around February, and was told he had an astigmatism but he cannot remember which eye. Other than that his vision has been okay. He does state that he has been having quite blurry vision. His Snellen chart was 20/50 in the right eye, and 20/70 in the left eye. She did start him on metformin 500 mg twice daily, but this is mail order and will not get him for a few days. Patient's hemoglobin A1c at the ID done this morning was 9.2, his other lab work demonstrated a blood glucose of 384, the patient's triglyceride level is increased at 449 as well. Patient does not appear to have any kidney dysfunction as his creatinine and GFR are within normal limits. The patient's sodium on our testing is 128, anion gap elevated at 16.9, blood sugar elevated at 392, and his A1c is elevated at 9.3. I did go over all these lab results with Dr. Bain, and he states the patient could safely receive some subcutaneous insulin for initial management, and suggests 8 units, and probably be sent home with metformin and have a follow-up regarding his eyes with an manager product management as they can get a more thorough examination. Sodium was also low at 128, he will be given some IV fluids as well. 08/02/19 12:21 I reevaluated the patient, he is mcfp done with his liter of fluids. I did explain to him that the changes he was experiencing are most likely due to new onset diabetes, patient notes that his provider from the ID did not send him home with a glucose monitor as well. I did call the provider at the ID and request that she send a glucose monitor to the patient as well. I have also placed a referral to the simulation educator from this hospital so she can give him general education regarding diabetes management. He is receptive to this at this time. I did also explain that several lifestyle modifications could help him in the long run, and he seems receptive to this information as well. Departure - Departure Time of Disposition: 14:46 Condition: Fair - Discharge Information *PRESCRIPTION DRUG MONITORING PROGRAM REVIEWED*: No *COPY OF PRESCRIPTION DRUG MONITORING REPORT IN PATIENT SHANA: No Sepsis Event Note - Evaluation Sepsis Screening Result: No Definite Risk - Focused Exam Date Exam was Performed: 08/02/19 Time Exam was Performed: 14:45
== END 2019-08-02 14:55 | disposition home or self-care (01) ==
LOC: JD.ED 09:36
DX: E11.9 Type 2 diabetes mellitus without complications (principal); I10 Essential (primary) hypertension; E78.00 Pure hypercholesterolemia, unspecified; I48.91 Unspecified atrial fibrillation; F17.210 Nicotine dependence, cigarettes, uncomplicated; Z79.01 Long term (current) use of anticoagulants; Z79.899 Other long term (current) drug therapy
CPT/HCPCS: 36415; 80053; 81001; 82962; 83036; 85007; 85027; 96360; 96361; 99284; A9270; J1815; J7030

== ENCOUNTER 2021-04-30 12:48 | Emergency (ER) | payer OTHER ==
[2021-04-30 13:09] VITALS: BP 166/101; PULSE 81
--- NOTE | 2021-04-30 15:09 | CR ---
Chest: Frontal view of the chest was obtained. Comparison: Prior chest x-ray of 04/13/17. Heart size and mediastinum are within normal limits. Lungs are clear with no acute parenchymal change. No acute osseous abnormality is appreciated. Impression: 1. Nothing acute is seen on frontal chest x-ray. Diagnostic code #1
--- NOTE | 2021-04-30 15:39 | EDM.PDOC ---
ED HPI GENERAL MEDICAL PROBLEM - General Chief Complaint: Chest Pain Stated Complaint: SORE CHEST SOB ARM TINGLES Time Seen by Provider: 04/30/21 13:05 Source of Information: Reports: Patient History Limitations: Reports: No Limitations - History of Present Illness INITIAL COMMENTS - FREE TEXT/NARRATIVE: The patient presents with chest pain. This has been going on for about 3 days. The pain comes and goes. He has no shortness of breath with it. He has no fever, chills, cough, abdominal pain, nausea or vomiting. He has a history of atrial fibrillation. He is on blood thinners and meds. He also has hypertension. He has no history of [place]. He does not smoke. He tried to go to the [place] [facility] but they sent him here. He also has diabetes. Onset: Gradual Duration: Day(s): (3) Location: Reports: Chest Quality: Reports: Ache Severity: Mild Improves with: Reports: None Worsens with: Reports: None Associated Symptoms: Reports: Chest Pain. Denies: Cough, Fever/Chills, Headaches, Nausea/Vomiting, Shortness of Breath Chest Pain Score (Numeric/FACES): 4 - Related Data Allergies Allergy/AdvReac Type Severity Reaction Status Date / Time No Known Allergies Allergy Verified 04/30/21 13:09 Home Meds: Home Meds Hydrochlorothiazide 12.5 mg PO DAILY 04/13/17 [History] Lisinopril 10 mg PO DAILY 04/13/17 [History] Simvastatin [Zocor] 80 mg PO BEDTIME 04/13/17 [History] Apixaban [Eliquis] 5 mg PO BID #60 tablet 04/15/17 [Rx] Metoprolol Tartrate [Lopressor] 50 mg PO Q12HR #60 tablet 04/15/17 [Rx] Amoxicillin 500 mg PO BID 08/02/19 [History] Cholecalciferol (Vitamin D3) [Vitamin D] 5,000 units PO BID 08/02/19 [History] Past Medical History HEENT History: Reports: None, Impaired Vision Cardiovascular History: Reports: Afib, High Cholesterol, Hypertension Respiratory History: Reports: Sleep Apnea, Other (See Below) Other Respiratory History: pleurisy, pneumonia and mono together as a child Gastrointestinal History: Reports: None Genitourinary History: Reports: None Other Genitourinary History: enlarged prostate Musculoskeletal History: Reports: None Neurological History: Reports: None Psychiatric History: Reports: None Endocrine/Metabolic History: Reports: None Hematologic History: Reports: None Immunologic History: Reports: None Oncologic (Cancer) History: Reports: None Dermatologic History: Reports: None - Infectious Disease History Infectious Disease History: Reports: None - Past Surgical History Head Surgeries/Procedures: Reports: None HEENT Surgical History: Reports: Oral Surgery Male Surgical History: Reports: None Social & Family History - Family History Family Medical History: No Pertinent Family History Cardiac: Reports: Bypass, Hypertension - Tobacco Use Tobacco Use Status *Q: Current Some Day Tobacco User Years of Tobacco use: 20 Packs/Tins Daily: 0.1 - Caffeine Use Caffeine Use: Reports: Coffee, Soda, Tea ED ROS GENERAL - Review of Systems Review Of Systems: See Below Constitutional: Reports: No Symptoms HEENT: Reports: No Symptoms Respiratory: Reports: No Symptoms Cardiovascular: Reports: Chest Pain Endocrine: Reports: No Symptoms GI/Abdominal: Reports: No Symptoms : Reports: No Symptoms Musculoskeletal: Reports: No Symptoms ED EXAM, GENERAL - Physical Exam Exam: See Below Exam Limited By: No Limitations General Appearance: Alert, No Apparent Distress Ears: Normal External Exam Nose: Normal Inspection Head: Atraumatic, Normocephalic Neck: Normal Inspection Respiratory/Chest: No Respiratory Distress, Lungs Clear, Normal Breath Sounds Cardiovascular: Regular Rate, Rhythm, No Edema, No Murmur GI/Abdominal: Soft, Non-Tender, No Organomegaly, No Mass Back Exam: Normal Inspection Extremities: Normal Inspection Neurological: Alert, Oriented, No Motor/Sensory Deficits #1 Interpretation EKG Date: 04/30/21 Time: 13:18 Rhythm: NSR Rate (Beats/Min): 88 [place]: Normal P-Wave: Present QRS: Normal ST-T: Elevated (Normal early repol) QT: Normal Course - Vital Signs Last Recorded V/S: Last Vital Signs Temp 97.8 F 04/30/21 13:06 Pulse 81 04/30/21 13:06 Resp 18 04/30/21 13:06 BP 166/101 H 04/30/21 13:06 Pulse Ox 97 04/30/21 13:06 - Orders/Labs/Meds Orders: Active Orders 24 hr Category Date Time Status Cardiac Monitoring [RC] . DIRECTED Care 04/30/21 13:24 Active Labs: Laboratory Tests 04/30/21 04/30/21 04/30/21 Range/Units 13:59 13:59 13:59 WBC 7.79 (4.23-9.07) K/mm3 RBC 5.35 (4.63-6.08) M/mm3 Hgb 16.6 (13.7-17.5) gm/dl Hct 49.8 (40.1-51.0) % MCV 93.1 H D (79.0-92.2) fl MCH 31.0 (25.7-32.2) pg MCHC 33.3 (32.2-35.5) g/dl RDW Std Deviation 46.1 H (35.1-43.9) fL Plt Count 166 D (163-337) K/mm3 MPV 11.2 (9.4-12.3) fl Neut % (Auto) 66.1 (34.0-67.9) % Lymph % (Auto) 24.3 (21.8-53.1) % [place] % (Auto) 6.3 (5.3-12.2) % Eos % (Auto) 2.1 (0.8-7.0) Baso % (Auto) 0.8 (0.1-1.2) % Neut # (Auto) 5.16 (1.78-5.38) K/mm3 Lymph # (Auto) 1.89 (1.32-3.57) K/mm3 [place] # (Auto) 0.49 (0.30-0.82) K/mm3 Eos # (Auto) 0.16 (0.04-0.54) K/mm3 Baso # (Auto) 0.06 (0.01-0.08) K/mm3 D-Dimer, Quantitative 0.28 (0.19-0.50) mg/L Sodium 138 D (136-145) mEq/L Potassium 4.0 (3.5-5.1) mEq/L Chloride 98 (98-107) mEq/L Carbon Dioxide 31 (21-32) mEq/L Anion Gap 13.0 (5-15) BUN 8 (7-18) mg/dL Creatinine 1.0 (0.7-1.3) mg/dL Est Cr Clr Drug Dosing 116.45 mL/min Estimated GFR (MDRD) > 60 (>60) mL/min BUN/Creatinine Ratio 8.0 L (14-18) Glucose 92 (70-99) mg/dL Calcium 8.7 (8.5-10.1) mg/dL Total Bilirubin 0.6 (0.2-1.0) mg/dL AST 60 H (15-37) U/L ALT 69 H (16-63) U/L Alkaline Phosphatase 62 (46-116) U/L Troponin I < 0.017 (0.00-0.056) ng/mL NT-Pro-B Natriuret Pep (0-125) pg/mL Total Protein 7.1 (6.4-8.2) g/dl Albumin 3.6 (3.4-5.0) g/dl Globulin 3.5 gm/dL Albumin/Globulin Ratio 1.0 (1-2) 04/30/21 Range/Units 13:59 WBC (4.23-9.07) K/mm3 RBC (4.63-6.08) M/mm3 Hgb (13.7-17.5) gm/dl Hct (40.1-51.0) % MCV (79.0-92.2) fl MCH (25.7-32.2) pg MCHC (32.2-35.5) g/dl RDW Std Deviation (35.1-43.9) fL Plt Count (163-337) K/mm3 MPV (9.4-12.3) fl Neut % (Auto) (34.0-67.9) % Lymph % (Auto) (21.8-53.1) % [place] % (Auto) (5.3-12.2) % Eos % (Auto) (0.8-7.0) Baso % (Auto) (0.1-1.2) % Neut # (Auto) (1.78-5.38) K/mm3 Lymph # (Auto) (1.32-3.57) K/mm3 [place] # (Auto) (0.30-0.82) K/mm3 Eos # (Auto) (0.04-0.54) K/mm3 Baso # (Auto) (0.01-0.08) K/mm3 D-Dimer, Quantitative (0.19-0.50) mg/L Sodium (136-145) mEq/L Potassium (3.5-5.1) mEq/L Chloride (98-107) mEq/L Carbon Dioxide (21-32) mEq/L Anion Gap (5-15) BUN (7-18) mg/dL Creatinine (0.7-1.3) mg/dL Est Cr Clr Drug Dosing mL/min Estimated GFR (MDRD) (>60) mL/min BUN/Creatinine Ratio (14-18) Glucose (70-99) mg/dL Calcium (8.5-10.1) mg/dL Total Bilirubin (0.2-1.0) mg/dL AST (15-37) U/L ALT (16-63) U/L Alkaline Phosphatase (46-116) U/L Troponin I (0.00-0.056) ng/mL NT-Pro-B Natriuret Pep 40 (0-125) pg/mL Total Protein (6.4-8.2) g/dl Albumin (3.4-5.0) g/dl Globulin gm/dL Albumin/Globulin Ratio (1-2) - Re-Assessments/Exams Free Text/Narrative Re-Assessment/Exam: 04/30/21 15:37 I ordered an EKG, CXR and labs. His EKG shows a NSR at a rate of 88 without acute changes. His CXR shows nothing acute. His CBC looks good. His D-dimer is normal. His AST is elevated at 60. His ALT is elevated at 69. His troponin is negative. His BNP is normal. 04/30/21 15:41 He feels better. I will discharge him home. Departure - Departure Time of Disposition: 15:45 Disposition: Home, Self-Care 01 Condition: Good Clinical Impression: Atypical chest pain Referrals: PCP,None [Primary Care Provider] - Forms: ED Department Discharge Additional Instructions: Continue taking your medications as prescribed. Follow up with your doctor within a week. Please return if you are worse. Sepsis Event Note (ED) - Evaluation Sepsis Screening Result: No Definite Risk - Focused Exam Vital Signs: Vital Signs Temp Pulse Resp BP Pulse Ox 04/30/21 13:06 97.8 F 81 18 166/101 H 97 - My Orders Last 24 Hours: My Active Orders 04/30/21 13:24 Cardiac Monitoring [RC] . DIRECTED - Assessment/Plan Last 24 Hours: My Active Orders 04/30/21 13:24 Cardiac Monitoring [RC] . DIRECTED
== END 2021-04-30 16:05 | disposition home or self-care (01) ==
LOC: JD.ED 12:48
DX: R07.89 Other chest pain (principal); I48.91 Unspecified atrial fibrillation; E78.00 Pure hypercholesterolemia, unspecified; I10 Essential (primary) hypertension; Z72.0 Tobacco use; Z79.01 Long term (current) use of anticoagulants; Z79.899 Other long term (current) drug therapy
CPT/HCPCS: 36415; 71045; 71045-26; 80053; 83880; 84484; 85025; 85379; 93005; 99285-25

== ENCOUNTER 2021-06-18 18:21 | Emergency (ER) | payer OTHER ==
[2021-06-18 19:07] VITALS: BP 166/98; PULSE 72
--- NOTE | 2021-06-18 19:41 | EDM.PDOC ---
ED HPI GENERAL MEDICAL PROBLEM - General Chief Complaint: Cardiovascular Problem Stated Complaint: BLOOD PRESSURE HIGH 205/125 Time Seen by Provider: 06/18/21 19:06 Source of Information: Reports: Patient, RN Notes Reviewed History Limitations: Reports: No Limitations - History of Present Illness INITIAL COMMENTS - FREE TEXT/NARRATIVE: Patient is a 36-year-old male presenting to the emergency department with concerns of hypertension. He reports history of hypertension is currently taking metoprolol 100 mg twice daily, lisinopril 10 mg daily, and hydrochlorothiazide 12.5 mg daily. This evening, he reports that he felt like his blood pressure was high. He gets slight pressure and can "hear his heartbeat "when his blood pressure goes high. He checked it and it was found to be 205/125. He took his evening dose of metoprolol 100 mg and also took an additional lisinopril 10 mg. He then came to the ER as this high reading of concern to him. He denies any chest pain or shortness of breath. States he no longer has the feeling in his head of high blood pressure. His primary care provider is Dr. Watkins at the [facility]. They are working on getting him set up with a blood pressure machine connected to telemedicine to better monitor his blood pressures as he feels his machine may not be working correctly. - Related Data Allergies Allergy/AdvReac Type Severity Reaction Status Date / Time No Known Allergies Allergy Verified 06/18/21 19:08 Home Meds: Home Meds Hydrochlorothiazide 12.5 mg PO DAILY 04/13/17 [History] Lisinopril 10 mg PO DAILY 04/13/17 [History] Simvastatin [Zocor] 80 mg PO BEDTIME 04/13/17 [History] Apixaban [Eliquis] 5 mg PO BID #60 tablet 04/15/17 [Rx] Metoprolol Tartrate [Lopressor] 50 mg PO Q12HR #60 tablet 04/15/17 [Rx] Amoxicillin 500 mg PO BID 08/02/19 [History] Cholecalciferol (Vitamin D3) [Vitamin D] 5,000 units PO BID 08/02/19 [History] Past Medical History HEENT History: Reports: None, Impaired Vision Cardiovascular History: Reports: Afib, High Cholesterol, Hypertension Respiratory History: Reports: Sleep Apnea, Other (See Below) Other Respiratory History: pleurisy, pneumonia and mono together as a child Gastrointestinal History: Reports: None Genitourinary History: Reports: None Other Genitourinary History: enlarged prostate Musculoskeletal History: Reports: None Neurological History: Reports: None Psychiatric History: Reports: None Endocrine/Metabolic History: Reports: None Hematologic History: Reports: None Immunologic History: Reports: None Oncologic (Cancer) History: Reports: None Dermatologic History: Reports: None - Infectious Disease History Infectious Disease History: Reports: None - Past Surgical History Head Surgeries/Procedures: Reports: None HEENT Surgical History: Reports: Oral Surgery Male Surgical History: Reports: None Social & Family History - Family History Family Medical History: No Pertinent Family History Cardiac: Reports: Bypass, Hypertension - Caffeine Use Caffeine Use: Reports: Coffee, Soda, Tea ED ROS GENERAL - Review of Systems Review Of Systems: Comprehensive ROS is negative, except as noted in HPI. ED EXAM, GENERAL - Physical Exam Exam: See Below Exam Limited By: No Limitations General Appearance: Alert, WD/WN, No Apparent Distress Eye Exam: Bilateral Eye: Normal Inspection, PERRL Respiratory/Chest: No Respiratory Distress, Lungs Clear, Normal Breath Sounds, No Accessory Muscle Use, Chest Non-Tender Cardiovascular: Normal Peripheral Pulses, Regular Rate, Rhythm, No Edema, No Gallop, No JVD, No Murmur, No Rub Neurological: Alert, Oriented, Normal Cognition, Normal Gait, No Motor/Sensory Deficits Psychiatric: Normal Affect, Normal Mood Skin Exam: Warm, Dry, Intact, Normal Color, No Rash Course - Vital Signs Last Recorded V/S: Last Vital Signs Temp 97.0 F 06/18/21 19:01 Pulse 72 06/18/21 19:01 Resp 20 06/18/21 19:01 BP 166/98 H 06/18/21 19:01 Pulse Ox 97 06/18/21 19:01 - Re-Assessments/Exams Free Text/Narrative Re-Assessment/Exam: Patient is a 36-year-old male presenting to the emergency department with concerns of hypertension. He reports blood pressure at home of 205/125. On arrival to ER, blood pressure is 166/98. At the time my exam, blood pressure was 149/85. Patient states that he feels well at this time. Denies any chest pain or shortness of breath. He does not have headache or vision changes. Discussed possibility of blood work and EKG, however he declined this. Does not feel it is necessary. He states that he will follow up with his primary care provider tomorrow. We will discharge him home with recommendation that he continue his medications as currently prescribed. Discharge instructions as documented. Departure - Departure Time of Disposition: 19:43 Disposition: Home, Self-Care 01 Condition: Good Clinical Impression: Hypertension Qualifiers: Hypertension type: essential hypertension Qualified Code(s): I10 - Essential (primary) hypertension Instructions: Hypertension, Adult, [id number] Referrals: Shawnee Watkins MD [Primary Care Provider] - Forms: ED Department Discharge Additional Instructions: Continue medications as currently prescribed. Follow-up with your primary care provider tomorrow. Return to ER for any new or worsening symptoms of concern.
== END 2021-06-18 19:50 | disposition home or self-care (01) ==
LOC: JD.ED 18:21
DX: I10 Essential (primary) hypertension (principal); I48.91 Unspecified atrial fibrillation; E78.00 Pure hypercholesterolemia, unspecified; Z79.899 Other long term (current) drug therapy
CPT/HCPCS: 99283